=== PATIENT | female | born 1965 | race Caucasian/White ===

== ENCOUNTER 2016-06-14 20:44 | Emergency (ER) | payer OTHER ==
[~2016-06-14] VITALS: Ht 175.3 cm; Wt 65.3 kg
[~2016-06-14 20:44] MED LIST: AMOXICILLIN500 MG PO; CIPRO500 MG PO; COLCRYS0.6 MG PO; FEOSOL45 MG PO; FLOVENT HF110 MCG/AC IH; NORCO 10/325 MG1 TAB PO; PREDNISONE20 MG PO; PREMARIN0.625 MG PO; PROVERA10 M1 PO; REGLAN10 MG PO; RESTORIL15 MG PO; RESTORIL30 MG PO; SINGULAIR10 MG PO; TUDORZA PR400 MCG/Ac IH; TYLENOL #3 300/1 TAB PO; VENTOLIN H0.09 MG/Ac IH; ZITHROMAX250 MG PO
[2016-06-14 21:00] VITALS: BP 132/115
--- NOTE | 2016-06-14 21:12 | NUR ---
PT TAKEN TO OF3
--- NOTE | 2016-06-14 21:19 | NUR ---
Dr. Ring evaluating patient
[2016-06-14] MEDS ORDERED: ALBUTEROL 0.083% 2.5 MG/3 ML NEBU INH ONE ×2 (21:25→22:00)
[2016-06-14] MEDS ORDERED: methylPREDNISolone SS 125 MG in WATER STERILE 2 ML IM ONE (21:25)
[2016-06-14] MEDS ORDERED: SULFAMETH/TRIMETH DS 800/160MG 1 TAB PO ONE (21:25)
--- NOTE | 2016-06-14 21:36 | NUR ---
RT WITH PATIENT
--- NOTE | 2016-06-14 22:00 | NUR ---
PATIENT PRESENTS TO ED WITH SOB X2DAYS . PT STATES SHE HAS ALSO HAD A HEADACHE THE FEELS LIKE AN INTERMITTENT PULLING . DENIES N/V/D; SKIN IS PINK/WARM/DRY; AAOX4 WITH EVEN AND STEADY GAIT; LUNGS CLEAR BL; HR EVEN AND REGULAR; PT DENIES ANY FEVER, CP, SOB, OR COUGH AT THIS TIME; PATIENT STATES PAIN OF 10/10 AT THIS TIME; VSS; PATIENT POSITIONED FOR COMFORT; HOB ELEVATED; BEDRAILS UP X2; BED DOWN. ER MD MADE AWARE OF PT STATUS.
--- NOTE | 2016-06-14 22:10 | NUR ---
RT WITH PATIENT FOR SECOND TREATMENT
[2016-06-14] MEDS ORDERED: IBUPROFEN 800 MG TAB PO ONE (22:25)
--- NOTE | 2016-06-14 22:50 | NUR ---
Patient discharged with v/s stable. Written and verbal after care instructions given and explained. Patient alert, oriented and verbalized understanding of instructions. Ambulatory with steady gait. All questions addressed prior to discharge. ID band removed. Patient advised to follow up with PMD. Rx of Bactrim and Prednisone given. Patient educated on indication of medication including possible reaction and side effects. Opportunity to ask questions provided and answered.
[2016-06-14 22:51] VITALS: BP 128/75
[2016-09-07] MEDS ORDERED: FLOVENT HF110 MCG/AC INH (14:29)
[2016-09-07] MEDS ORDERED: VENTOLIN H0.09 MG/Ac IH (14:29)
[2016-09-07] MEDS ORDERED: CELEXA20 MG PO (14:29)
[2016-09-07] MEDS ORDERED: SINGULAIR10 MG PO (14:29)
[2016-09-07] MEDS ORDERED: LEVAQUIN750 MG PO (14:29)
[2016-09-07] MEDS ORDERED: FLORASTOR250 MG PO (14:29)
[2016-09-07] MEDS ORDERED: CLARITIN10 M1 PO (14:29)
[2016-09-07] MEDS ORDERED: MEDROL4 MG PO (14:29)
== END 2016-06-14 22:50 | disposition home or self-care (01) ==
LOC: MED 20:44
DX: J45.909 Unspecified asthma, uncomplicated (principal); R51 Headache; R50.9 Fever, unspecified
CPT/HCPCS: 94640; 96372; 99284; J2930; J7613

== ENCOUNTER 2016-09-02 13:49 | Emergency (ER) | payer OTHER ==
[~2016-09-02] VITALS: Ht 167.6 cm; Wt 64.0 kg
[~2016-09-02 13:49] MED LIST changes: +ALBU0.0912 IH; -AMOXICILLIN500 MG PO; -CIPRO500 MG PO; -COLCRYS0.6 MG PO; -FEOSOL45 MG PO; +FLO110 IH; -FLOVENT HF110 MCG/AC IH; -NORCO 10/325 MG1 TAB PO; -PREDNISONE20 MG PO; -PREMARIN0.625 MG PO; -PROVERA10 M1 PO; -REGLAN10 MG PO; -RESTORIL15 MG PO; -RESTORIL30 MG PO; -SINGULAIR10 MG PO; -TUDORZA PR400 MCG/Ac IH; -TYLENOL #3 300/1 TAB PO; -VENTOLIN H0.09 MG/Ac IH; -ZITHROMAX250 MG PO
[2016-09-02 13:50] VITALS: BP 120/59
[2016-09-02] MEDS ORDERED: ALBUTEROL 0.083% 2.5 MG/3 ML NEBU INH ONE ×2 (14:05→15:05)
[2016-09-02] MEDS ORDERED: IPRATROPIUM 0.02% 0.5 MG/2.5 ML NEBU INH ONE ×2 (14:05→15:05)
[2016-09-02] MEDS ORDERED: MAG SULF 2000 MG/WATER PREMIX 50 ML IV ONE (14:05)
[2016-09-02] MEDS ORDERED: methylPREDNISolone SS 125 MG/2 ML VIAL IVP ONE (14:05)
[2016-09-02] MEDS ORDERED: ASPIRIN 325 MG TAB PO ONE (14:05)
[2016-09-02] MEDS ORDERED: NACL 0.9% 1,000 ML IV ONE (14:05)
--- NOTE | 2016-09-02 14:09 | NUR ---
LAB AT BEDSIDE.
--- NOTE | 2016-09-02 14:14 | NUR ---
RT AT BEDSIDE.
--- NOTE | 2016-09-02 14:16 | NUR ---
51/M HERE FOR C/O SOB WITH AUDIBLE WHEEZING. RX ALBUTEROL INH/PREDNISONE 08/25/2016. HX ASTHMA, DEPRESSION, INGUINAL HERNIA. RX ALBUTEROL, PREDNISONE, CITALOPRAM. NEW ORDERS TO FOLLOW PER DR. RIVERA. Addendum: 09/02/16 at 1428 by MEDAE 51/F HERE FOR C/O SOB WITH AUDIBLE WHEEZING. RX ALBUTEROL INH/PREDNISONE 08/25/2016. HX ASTHMA, DEPRESSION, INGUINAL HERNIA. RX ALBUTEROL, PREDNISONE, CITALOPRAM. NEW ORDERS TO FOLLOW PER DR. RIVERA.
[2016-09-02 14:21] LABS: BASOPHILS # (AUTO) 0.2 K/uL (0.00-0.22); BASOPHILS % (AUTO) 1.9 % (0.0-2.0); EOSINOPHILS # (AUTO) 0.4 K/uL (0-0.4); EOSINOPHILS % (AUTO) 4.7 % (0.0-4.0); HEMOGLOBIN 15.8 g/dL (12.0-16.0); LYMPHOCYTES # (AUTO) 1.8 K/uL (2.5-16.5); LYMPHOCYTES % (AUTO) 19.7 % (20.5-51.1); MEAN CORPUSCULAR HEMOGLOBIN 30 pg (27-31); MEAN CORPUSCULAR HGB CONC 32 g/dL (33-37); MEAN CORPUSCULAR VOLUME 92 fL (80-94); MONOCYTES # (AUTO) 1.1 K/uL (0.8-1.0); MONOCYTES % (AUTO) 11.3 % (1.7-9.3); NEUTROPHILS # (AUTO) 5.9 K/uL (1.8-7.7); NEUTROPHILS % (AUTO) 62.4 % (42.2-75.2); PLATELET COUNT (AUTO) 267 K/uL (140-450); RED BLOOD CELL COUNT(AUTO) 5.31 MIL/uL (4.20-5.40); RED CELL DISTRIBUTION WIDTH 13.2 % (11.6-13.7); WHITE BLOOD COUNT (AUTO) 9.4 K/uL (4.8-10.8)
--- NOTE | 2016-09-02 14:28 | NUR ---
XRAY AT BEDSIDE.
[2016-09-02 14:41] LABS: INR 1.3 (0.8-1.2); PARTIAL THROMBOPLASTIN TIME 23.3 secs (22-35.6); PROTHROMBIN TIME 12.3 secs (10.8-13.4)
[2016-09-02 14:43] LABS: CALCIUM 9.7 mg/dL (8.5-10.1); CARBON DIOXIDE 32.2 mmol/L (21-32); CREATININE 0.8 mg/dL (0.6-1.3); POTASSIUM 3.2 mmol/L (3.5-5.1)
[2016-09-02 14:49] LABS: ALBUMIN 3.9 g/dL (3.4-5.0); TOTAL BILIRUBIN 0.6 mg/dL (0.0-1.0); TOTAL PROTEIN, SERUM 7.4 g/dL (6.4-8.2)
--- NOTE | 2016-09-02 15:00 | NUR ---
Patient being RE-evaluated by physician at bedside. PT WORK OF BREATHING HAS IMPROVED. RESIDUAL WHEEZING NOTED. RETRACTIONS FROM MODERATE TO MILD. ER MD AWARE.
[2016-09-02 16:22] VITALS: BP 138/83
--- NOTE | 2016-09-02 16:22 | NUR ---
Patient discharged with v/s stable. Written and verbal after care instructions given and explained. Patient alert, oriented and verbalized understanding of instructions. Ambulatory with steady gait. All questions addressed prior to discharge. ID band removed. Patient advised to follow up with PMD. Rx of PREDNISONE AND DEXTROMETHORPHAN/PROMETHAZINE given. Patient educated on indication of medication including possible reaction and side effects. Opportunity to ask questions provided and answered.
== END 2016-09-02 16:22 | disposition home or self-care (01) ==
LOC: MED 13:50
DX: J45.901 Unspecified asthma with (acute) exacerbation (principal); J20.9 Acute bronchitis, unspecified
CPT/HCPCS: 36415; 71010; 80053; 83880; 84484; 85025; 85610; 85730; 93005; 94640; 96365; 96375; 99291; J2930; J3475; J7613; J7644

== ENCOUNTER 2016-09-03 15:38 | Inpatient (IN) | payer OTHER ==
[~2016-09-03] VITALS: Ht 167.6 cm; Wt 62.2 kg
[2016-09-03 15:47] VITALS: BP 137/86
--- NOTE | 2016-09-03 15:54 | NUR ---
Patient ambulated to bed 4 with family. RN evaluating patient at bedside.
--- NOTE | 2016-09-03 15:57 | NUR ---
51/F TO ED WITH C/O SOB STARTING THIS MORNING. PT WAS SEEN IN ED YESTERDAY FOR ASTHMA. WHEEZING HEARD UPON INSP AND EXP. DENIES PAIN. AAOX4. VSS. ERMD TO SEE PT.
[2016-09-03] MEDS ORDERED: ALBUTEROL SULFATE/IPRATROPIU 3 ML SOL IH ONE (16:05)
[2016-09-03] MEDS ORDERED: MAG SULF 2000 MG/WATER PREMIX 50 ML IV ONE (16:05)
[2016-09-03] MEDS ORDERED: methylPREDNISolone SS 125 MG/2 ML VIAL IVP ONE (16:05)
--- NOTE | 2016-09-03 16:05 | NUR ---
Dr. Santos evaluating patient at bedside.
--- NOTE | 2016-09-03 16:14 | NUR ---
Breathing treatment administered at bedside by respiratory therapist.
--- NOTE | 2016-09-03 16:19 | NUR ---
RESPIRATORY TX. IN PROGRESS. MONITORED. NO DISTRESS
[2016-09-03 16:29] LABS: BASOPHILS # (AUTO) 0.1 K/uL (0.00-0.22); BASOPHILS % (AUTO) 0.7 % (0.0-2.0); EOSINOPHILS # (AUTO) 0.2 K/uL (0-0.4); EOSINOPHILS % (AUTO) 1.4 % (0.0-4.0); HEMATOCRIT 49.3 % (36-48); HEMOGLOBIN 15.9 g/dL (12.0-16.0); LYMPHOCYTES # (AUTO) 0.8 K/uL (2.5-16.5); LYMPHOCYTES % (AUTO) 6.2 % (20.5-51.1); MEAN CORPUSCULAR HEMOGLOBIN 30 pg (27-31); MEAN CORPUSCULAR HGB CONC 32 g/dL (33-37); MEAN CORPUSCULAR VOLUME 92 fL (80-94); MONOCYTES # (AUTO) 0.6 K/uL (0.8-1.0); MONOCYTES % (AUTO) 4.2 % (1.7-9.3); NEUTROPHILS # (AUTO) 11.6 K/uL (1.8-7.7); NEUTROPHILS % (AUTO) 87.5 % (42.2-75.2); PLATELET COUNT (AUTO) 264 K/uL (140-450); RED BLOOD CELL COUNT(AUTO) 5.38 MIL/uL (4.20-5.40); RED CELL DISTRIBUTION WIDTH 13.5 % (11.6-13.7); WHITE BLOOD COUNT (AUTO) 13.3 K/uL (4.8-10.8)
[2016-09-03 16:42] LABS: ANION GAP 104.7 (8-16); CALCIUM 9.6 mg/dL (8.5-10.1); CARBON DIOXIDE 12.3 mmol/L (21-32)
[2016-09-03 16:43] LABS: CREATININE 0.8 mg/dL (0.6-1.3)
[2016-09-03 16:47] LABS: ALBUMIN 3.8 g/dL (3.4-5.0); MAGNESIUM 1.8 mg/dL (1.8-2.4); PHOSPHORUS 2.8 mg/dL (2.5-4.9); TOTAL BILIRUBIN 0.3 mg/dL (0.0-1.0); TOTAL PROTEIN, SERUM 7.2 g/dL (6.4-8.2)
[2016-09-03 17:29] LABS: BLOOD GAS PCO2 32.7 mmHg (20-50); BLOOD GAS PH 7.422 (7.35-7.45)
[2016-09-03 17:30] LABS: BLOOD GAS BASE EXCESS -2.5 mmol/L (-2.0-2.0); BLOOD GAS HCO3 20.8 mmol/L; BLOOD GAS O2 SAT% 93.9 % (92.0-98.5)
--- NOTE | 2016-09-03 19:14 | NUR ---
Patient will be admitted to care of DR BOWIE. Admited to TELE. Will go to room 120A. Belongings list completed. Report to VAISHALI.
--- NOTE | 2016-09-03 19:40 | NUR ---
RECEIVED REPORT FROM DAY RN FOR CONTINUITY OF CARE. PATIENT ARRIVED FROM ER WITH DIAGNOSIS ACUTE ASTHMA EXACERBATION. PATIENT IS A&OX4, DISCUSSED PLAN OF CARE WITH PT AND DAUGHTER AT BEDSIDE, VERBALIZED UNDERSTANDING. SHIFT ASSESSMENT DONE, VS TAKEN, STABLE. NO S/S OF RESPIRATORY DISTRESS NOTED ON 2L NC. PATIENT DENIES PAIN. SKIN INTACT. IV TO RT FA PATENT AND FLUSHED. MRSA SWAB COLLECTED, WRISTBANDS APPLIED. SAFETY PRECAUTIONS ENFORCED AND CALL LIGHT PLACED WITHIN REACH. WILL CONTINUE TO MONITOR.
[2016-09-03 20:00] VITALS: BP 126/82
[2016-09-03] MEDS ORDERED: ACETAMINOPHEN 325 MG TAB PO PRN (20:15)
[2016-09-03] MEDS ORDERED: ONDANSETRON 4 MG/2 ML VIAL IVP PRN (20:15)
[2016-09-03] MEDS ORDERED: ZOLPIDEM 5 MG TAB PO PRN (20:15)
[2016-09-03] MEDS ORDERED: LORazepam 1 MG TAB PO PRN (20:15)
[2016-09-03] MEDS ORDERED: ALBUTEROL SULFATE/IPRATROPIU 3 ML SOL INH PRN (20:20)
[2016-09-03] MEDS: ALBUTEROL SULFATE/IPRATROPIU 3 ML SOL INH SCH (20:20)
--- NOTE | 2016-09-03 20:45 | NUR ---
DUO PRN HHN TREATMENT WAS GIVEN AT 2044, AT 2019 NO MEDICATION WAS AVAILABLE IN THE [facility]
[2016-09-03] MEDS: NACL 0.9% 1,000 ML IV SCH (20:50)
[2016-09-03 20:56] LABS: CHOL/HDL RATIO 2.1 (1-4.5); LDL (CALC) 115.8 mg/dL (60-100)
--- NOTE | 2016-09-03 20:58 | NUR ---
SPOKE TO DR. BOWIE REGARDING ORDER FOR ANTIDEPRESSANT AND NPO STATUS. PER PATIENT CAN EAT TONIGHT.
[2016-09-03] MEDS: CITALOPRAM 20 MG TAB PO SCH (21:15)
[2016-09-03] MEDS: methylPREDNISolone SS 125 MG/2 ML VIAL IVP SCH (21:20)
--- NOTE | 2016-09-03 21:20 | NUR ---
DUE MEDICATIONS ADMINISTERED PER MD ORDER. PATIENT HAS NO S/S OF DISTRESS NOTED. WILL CONTINUE TO MONITOR.
--- NOTE | 2016-09-03 23:52 | NUR ---
VS TAKEN, STABLE. PT IS SLEEPING, NO S/S OF DISTRESS NOTED. CALL LIGHT WITHIN REACH.
[2016-09-04] VITALS: BP 115/66
--- NOTE | 2016-09-04 01:56 | NUR ---
PATIENT IS SLEEPING, NO S/S OF DISTRESS OR DISCOMFORT NOTED. WILL CONTINUE TO MONITOR.
[2016-09-04 04:00] VITALS: BP 119/72
[2016-09-04] MEDS: methylPREDNISolone SS 125 MG/2 ML VIAL IVP SCH ×2 (04:22→13:02)
--- NOTE | 2016-09-04 04:30 | NUR ---
VS TAKEN, STABLE. ALL NEEDS MET AT THIS TIME. CALL LIGHT WITHIN REACH.
--- NOTE | 2016-09-04 05:57 | NUR ---
PT AMBULATED TO RESTROOM, NO S/S OF DISTRESS. CALL LIGHT IN REACH.
[2016-09-04 06:49] LABS: BASOPHILS % (AUTO) 0.3 % (0.0-2.0); EOSINOPHILS # (AUTO) 0.1 K/uL (0-0.4); EOSINOPHILS % (AUTO) 0.7 % (0.0-4.0); HEMATOCRIT 47.8 % (36-48); HEMOGLOBIN 15.5 g/dL (12.0-16.0); LYMPHOCYTES # (AUTO) 0.5 K/uL (2.5-16.5); LYMPHOCYTES % (AUTO) 6.3 % (20.5-51.1); MEAN CORPUSCULAR HEMOGLOBIN 30 pg (27-31); MEAN CORPUSCULAR HGB CONC 32 g/dL (33-37); MEAN CORPUSCULAR VOLUME 93 fL (80-94); MONOCYTES # (AUTO) 0.2 K/uL (0.8-1.0); MONOCYTES % (AUTO) 3.1 % (1.7-9.3); NEUTROPHILS # (AUTO) 7.2 K/uL (1.8-7.7); NEUTROPHILS % (AUTO) 89.6 % (42.2-75.2); PLATELET COUNT (AUTO) 254 K/uL (140-450); RED BLOOD CELL COUNT(AUTO) 5.11 MIL/uL (4.20-5.40); RED CELL DISTRIBUTION WIDTH 13.4 % (11.6-13.7)
[2016-09-04 07:10] LABS: PHOSPHORUS 3.9 mg/dL (2.5-4.9)
[2016-09-04 07:18] LABS: ANION GAP 11.9 (8-16); CALCIUM 9.6 mg/dL (8.5-10.1); CARBON DIOXIDE 28.2 mmol/L (21-32); CREATININE 0.7 mg/dL (0.6-1.3); POTASSIUM 5.1 mmol/L (3.5-5.1)
[2016-09-04] MEDS: ALBUTEROL SULFATE/IPRATROPIU 3 ML SOL INH SCH ×4 (07:21→19:50)
--- NOTE | 2016-09-04 07:23 | NUR ---
ENDORSED PATIENT TO DAY RN FOR CONTINUITY OF CARE, PATIENT IS IN STABLE CONDITION.
--- NOTE | 2016-09-04 07:24 | NUR ---
RECEIVED REPORT FROM FIELD FOREMAN NURSE AT BEDSIDE. PT WAS AMBULATING FROM BATHROOM BACK TO BED. PT IS ALERT, AWAKE AND ORIENTED. INTRODUCED OURSELVES AND DISCUSSED PLAN OF CARE FOR TODAY. WILL DISCUSS WITH DOCTOR REGARDING PATIENT'S DIET SHE IS NPO RIGHT NOW. PT IS ON 2L NC.SHE HAS IV ON R F/A 20G RUNNING NS 80ML/HR. NO COMPLAINTS AT THIS TIME. CALL LIGHT WITHIN REACH. WILL CONTINUE TO MONITOR.
[2016-09-04 08:00] VITALS: BP 116/78
--- NOTE | 2016-09-04 08:05 | NUR ---
ASSESSED PT. VS WNL. BL WHEEZING ON EXPIRATION. NO OTHER SIGNS OF DISTRESS. NO COMPLAINTS AT THIS TIME. WILL CONTINUE TO MONITOR.
[2016-09-04] MEDS: NACL 0.9% 1,000 ML IV SCH ×2 (08:43→20:42)
[2016-09-04] MEDS: DOCUSATE SODIUM 100 MG GELCAP PO SCH (09:00)
--- NOTE | 2016-09-04 09:20 | NUR ---
TALKED TO DOCTOR REGARDING PT'S NPO DIET. DOCTOR WILL PUT IN A NEW DIET ORDER. PT IS RESTING IN BED. NO DISTRESS OR COMPLAINTS AT THIS TIME. PT REFUSED COLACE SHE HAD A BM YESTERDAY. WILL CONTINUE TO MONITOR.
[2016-09-04] MEDS ORDERED: LORATADINE 10 MG TAB PO SCH ×2 (09:40→13:00)
[2016-09-04] MEDS ORDERED: FAMOTIDINE 20 MG TAB PO SCH ×2 (09:40→13:00)
--- NOTE | 2016-09-04 10:00 | NUR ---
PT IS EATING IN BED. TOLERATING WELL. PROVIDED A PITCHER OF WATER. NO COMPLAINTS OR DISTRESS AT THIS TIME. WILL CONTINUE TO MONITOR.
[2016-09-04] MEDS ORDERED: BUDESONIDE 0.5 MG/2 ML NEBU INH SCH (10:30)
[2016-09-04] MEDS ORDERED: BENZOCAINE/MENTHOL 1 LOZ MM SCH (10:30)
[2016-09-04 10:32] LABS: INR 1.3 (0.8-1.2); PARTIAL THROMBOPLASTIN TIME 23.4 secs (22-35.6)
[2016-09-04 10:42] LABS: FREE T4 (FREE THYROXINE) 1.08 ng/dL (0.76-1.46); THYROID STIMULATING HORMONE 0.08 uIU/mL (0.34-3.76)
[2016-09-04] MEDS: LEVOFLOXACIN 500 MG/D5W PREMIX 100 ML IV SCH (11:41)
[2016-09-04] MEDS ORDERED: BENZOCAINE/MENTHOL 1 LOZ MM PRN ×2 (12:00→13:05)
--- NOTE | 2016-09-04 12:20 | NUR ---
GAVE PT A SPECIMEN CUP AND ASKED HER TO COLLECT URINE IN IT. SHE VERBALIZED UNDERSTANDING AND WILL CALL US WHEN READY. PT EATING LUNCH IN BED WITH FAMILY AT BEDSIDE. NO DISTRESS OR COMPLAINTS AT THIS TIME. WILL CONTINUE TO MONITOR.
[2016-09-04 12:29] VITALS: BP 119/69
--- NOTE | 2016-09-04 13:00 | NUR ---
PT IS RESTING IN BED. NO DISTRESS OR COMPLAINTS AT THIS TIME. WILL CONTINUE TO MONITOR.
[2016-09-04 13:27] LABS: APPEARANCE,URINE CLEAR (CLEAR); BILIRUBIN,URINE NEGATIVE (NEGATIVE); BLOOD, URINE NEGATIVE (NEGATIVE); COLOR,URINE YELLOW (YELLOW); LEUKOCYTE ESTERASE ,URINE NEGATIVE (NEGATIVE); NITRITE, URINE NEGATIVE (NEGATIVE); PROTEIN,URINE NEGATIVE (NEGATIVE); UGLUCOSE 1+ (NEGATIVE); UROBILINOGEN,URINE 0.2 EU/dL (0.2 - 1)
[2016-09-04 13:37] LABS: BACTERIA,URINE OCCASSIONAL /HPF (None Seen); RBC,URINE NONE SEEN /HPF (0-5); SQUAMOUS EPITHELIAL CELL,UR 0-3 (FEW) /LPF (0-3 (FEW)); WBC,URINE 0-5 (RARE) /HPF (0-5)
[2016-09-04 16:00] VITALS: BP 119/69
[2016-09-04] MEDS: MONTELUKAST SODIUM 10 MG TAB PO SCH (16:50)
--- NOTE | 2016-09-04 17:00 | NUR ---
ADMINISTERED AFTERNOON MED. PT TOLERATED WELL. NO COMPLAINTS AT THIS TIME. WILL CONTINUE TO MONITOR.
--- NOTE | 2016-09-04 18:30 | NUR ---
PT IS RESTING COMFORTABLY WITH FAMILY AT BEDSIDE. CALL GARRISON WITHIN REACH. WILL CONTINUE TO MONITOR.
--- NOTE | 2016-09-04 19:09 | NUR ---
ENDORSED PT TO ASSISTANT MANAGER BILINGUAL NURSE AT BEDSIDE FOR CONTINUITY OF CARE. PT IN STABLE CONDITION.
--- NOTE | 2016-09-04 19:10 | NUR ---
RECEIVED REPORT FROM DAY RN FOR CONTINUITY OF CARE. PATIENT IS A&OX4, DISCUSSED PLAN OF CARE WITH PATIENT AND FAMILY MEMBERS AT BEDSIDE, VERBALIZED UNDERSTANDING. SHIFT ASSESSMENT DONE, VS TAKEN, STABLE. NO S/S OF RESPIRATORY DISTRESS NOTED. PATIENT DENIES PAIN AT THIS TIME. IV TO RT FA 20 GAUGE PATENT AND INFUSING FLUIDS WELL. PT EATING A SNACK, TOLERATED WELL. SAFETY/FALL PRECAUTIONS ENFORCED. CALL LIGHT WITHIN REACH.
[2016-09-04] MEDS: BUDESONIDE 0.5 MG/2 ML NEBU INH SCH (19:50)
[2016-09-04 20:00] VITALS: BP 125/73
[2016-09-04] MEDS: methylPREDNISolone SS 40 MG/ML VIAL IVP SCH (20:41)
[2016-09-04] MEDS: CITALOPRAM 20 MG TAB PO SCH (20:42)
--- NOTE | 2016-09-04 20:42 | NUR ---
DUE MEDICATIONS ADMINISTERED, TOLERATED WELL. CALL LIGHT WITHIN REACH.
--- NOTE | 2016-09-04 22:25 | NUR ---
PATIENT IS SLEEPING. NO S/S OF DISTRESS OR DISCOMFORT NOTED. CALL LIGHT IN REACH.
[2016-09-05] VITALS: BP 121/60
--- NOTE | 2016-09-05 00:34 | NUR ---
VS TAKEN, STABLE. PT IS SLEEPING, NO S/S OF DISTRESS NOTED. WILL CONTINUE TO MONITOR.
--- NOTE | 2016-09-05 02:05 | NUR ---
PT IS SLEEPING. NO S/S OF DISTRESS OR DISCOMFORT NOTED ON 2L NC. CALL LIGHT WITHIN REACH.
[2016-09-05 04:00] VITALS: BP 124/70
[2016-09-05] MEDS: methylPREDNISolone SS 40 MG/ML VIAL IVP SCH ×3 (04:17→20:22)
[2016-09-05] MEDS: HYDROcodone/APAP 5/325 MG 1 TAB TAB PO PRN ×2 (04:17→17:16)
--- NOTE | 2016-09-05 04:17 | NUR ---
VS TAKEN, STABLE. PT C/O ABDOMINAL PAIN, MEDICATED PER MD ORDER. CALL LIGHT WITHIN REACH.
--- NOTE | 2016-09-05 05:40 | NUR ---
PATIENT IS SLEEPING. NO S/S OF DISTRESS NOTED. CALL LIGHT IN REACH.
[2016-09-05] MEDS: ALBUTEROL SULFATE/IPRATROPIU 3 ML SOL INH SCH ×4 (06:47→19:25)
[2016-09-05] MEDS: BUDESONIDE 0.5 MG/2 ML NEBU INH SCH ×2 (06:56→19:26)
--- NOTE | 2016-09-05 07:06 | NUR ---
DECREASED FIO2 TO 3LNC
--- NOTE | 2016-09-05 07:18 | NUR ---
ENDORSED PATIENT TO DAY RN FOR CONTINUITY OF CARE, PATIENT IS IN STABLE CONDITION.
--- NOTE | 2016-09-05 07:30 | NUR ---
RECEIVED ON BED AAOX4. NO SOB NOTED. NO C/O PAIN AT THIS TIME. IV TO RT HAND PATENT AND INTACT. CHEST DIMINISHED AIR ENTRY TO THE BASES, WHEEZING BILATERALLY. ABDOMEN SOFT, BOWEL SOUNDS PRESENT. NO EDEMA NOTED. INSTRUCTED PT TO CALL FOR ASSISTANCE, CALL LIGHT WITHIN REACH. PT VERBALIZED UNDERSTANDING.
[2016-09-05 08:00] VITALS: BP 130/68
--- NOTE | 2016-09-05 08:00 | NUR ---
RECEIVED ON BED AAOX4. NO SOB NOTED. NO C/O PAIN AT THIS TIME. IV TO RT HAND PATENT AND INTACT. CHEST DIMINISHED AIR ENTRY TO THE BASES, WHEEZING BILATERALLY. ABDOMEN SOFT, BOWEL SOUNDS PRESENT. NO EDEMA NOTED. INSTRUCTED PT TO CALL FOR ASSISTANCE, CALL LIGHT WITHIN REACH. PT VERBALIZED UNDERSTANDING. Addendum: 09/05/16 at 1406 by Marion Tello RN pls disregard above notes, duplicate.
--- NOTE | 2016-09-05 08:27 | NUR ---
PATIENT HAS BEEN SCREENED AND CATEGORIZED MODERATE NUTRITION RISK. PATIENT WILL BE SEEN WITHIN 3-5 DAYS OF ADMISSION. 09/06/16-09/08/[address]
[2016-09-05 09:09] LABS: T4 (THYROXINE) 8.3 ug/dL (4.5-12.0)
[2016-09-05] MEDS: DOCUSATE SODIUM 100 MG GELCAP PO SCH (09:47)
[2016-09-05] MEDS: LORATADINE 10 MG TAB PO SCH (09:48)
[2016-09-05] MEDS: FAMOTIDINE 20 MG TAB PO SCH (09:49)
[2016-09-05] MEDS: LEVOFLOXACIN 500 MG/D5W PREMIX 100 ML IV SCH (09:50)
[2016-09-05 10:06] LABS: BLOOD GAS BASE EXCESS -0.1 mmol/L (-2.0-2.0); BLOOD GAS HCO3 23.8 mmol/L; BLOOD GAS O2 SAT% 90.5 % (92.0-98.5); BLOOD GAS PCO2 36.9 mmHg (20-50); BLOOD GAS PH 7.428 (7.35-7.45); BLOOD GAS PO2 56.5 mmHg
--- NOTE | 2016-09-05 11:29 | NUR ---
CM NOTE INITIAL REVIEW SENT TO [facility] FAX# [phone] PH# [place] [phone] OCTOBER [phone] [facility] FAX# [phone] PH# [phone] [id number]
[2016-09-05 12:00] VITALS: BP 113/74
--- NOTE | 2016-09-05 12:00 | NUR ---
PATIENT IS RESTING COMFORTABLY IN BED ON SUPINE POSITION. NO SOB NOTED AND VITAL SIGNS WITHIN NORMAL LIMIT.
--- NOTE | 2016-09-05 14:30 | NUR ---
PT SEEN BY DR. KATZ WITH NEW ORDERS. CXR DONE.
[2016-09-05 16:00] VITALS: BP 127/63
[2016-09-05] MEDS: MONTELUKAST SODIUM 10 MG TAB PO SCH (17:04)
--- NOTE | 2016-09-05 19:21 | NUR ---
ENDORSED TO DOCTOR OF MEDICINE NURSE FOR CONTINUITY OF CARE. PATIENT IS ON SUPINE POSITION TALKING WITH FAMILY MEMBER. NOT IN ACUTE DISTRESS AND DENIES PAIN AT THIS TIME. WILL CONTINUE TO MONITOR FOR SOB.
--- NOTE | 2016-09-05 19:22 | NUR ---
RECEIVED REPORT FROM DAY RN FOR CONTINUITY OF CARE. PATIENT IS A&OX4, DISCUSSED PLAN OF CARE WITH PATIENT AND FAMILY MEMBERS AT BEDSIDE. PATIENT VERBALIZED UNDERSTANDING, ALL QUESTIONS ANSWERED. SHIFT ASSESSMENT DONE, VS TAKEN, HR ELEVATED 107-115, PT ASYMPTOMATIC. NO S/S OF RESPIRATORY DISTRESS NOTED ON 3L NC. PATIENT DENIES PAIN AT THIS TIME. IV TO RT FA 20 GAUGE PATENT FLUSHED. SAFETY PRECAUTIONS IMPLEMENTED. CALL LIGHT PLACED WITHIN REACH. WILL CONTINUE TO MONITOR.
[2016-09-05 20:00] VITALS: BP 117/85
[2016-09-05] MEDS: CITALOPRAM 20 MG TAB PO SCH (20:22)
--- NOTE | 2016-09-05 20:22 | NUR ---
DUE MEDICATIONS ADMINISTERED, TOLERATED WELL. PT STATES SHE WOULD LIKE TO SLEEP NOW. CALL LIGHT WITHIN REACH.
--- NOTE | 2016-09-05 22:35 | NUR ---
PATIENT IS SLEEPING, NO S/S OF DISTRESS NOTED WILL CONTINUE TO MONITOR.
[2016-09-06] VITALS: BP 125/88
--- NOTE | 2016-09-06 00:50 | NUR ---
PATIENT AMBULATING TO RESTROOM C/O ABDOMINAL PAIN. VS TAKEN, STABLE. WILL FOLLOW UP WITH MD FOR PAIN MEDICATION.
--- NOTE | 2016-09-06 00:56 | NUR ---
SPOKE TO DR. BOWIE REGARDING PAIN MEDICATION FOR PATIENT, WILL FOLLOW OUT ORDERS GIVEN.
[2016-09-06] MEDS: MORPHINE SULFATE 2 MG/ML SYR IVP PRN ×2 (01:08→21:48)
--- NOTE | 2016-09-06 01:08 | NUR ---
ADMINISTERED PAIN MEDICATION PER MD ORDER. PT RESTING IN BED. WILL CONTINUE TO MONITOR.
[2016-09-06 04:00] VITALS: BP 122/76
--- NOTE | 2016-09-06 04:22 | NUR ---
VS TAKEN, STABLE. TOOK PT OF O2 FOR WEANING, O2 SAT AT 91-93%, PLACED BACK ON O2 PER PT COMFORT. WILL CONTINUE TO MONITOR.
[2016-09-06] MEDS: methylPREDNISolone SS 40 MG/ML VIAL IVP SCH ×3 (04:33→21:48)
--- NOTE | 2016-09-06 06:02 | NUR ---
PATIENT IS RESTING IN BED. NO S/S OF DISTRESS OR DISCOMFORT NOTED.
[2016-09-06] MEDS: ALBUTEROL SULFATE/IPRATROPIU 3 ML SOL INH SCH ×3 (06:59→15:32)
[2016-09-06] MEDS: BUDESONIDE 0.5 MG/2 ML NEBU INH SCH (07:09)
--- NOTE | 2016-09-06 07:22 | NUR ---
ENDORSED PATIENT TO DAY RN FOR CONTINUITY OF CARE, PATIENT IS IN STABLE CONDITION.
--- NOTE | 2016-09-06 07:23 | NUR ---
RECEIVED REPORT FROM ELECTRICAL ENGINEER MEP NURSE AT BEDSIDE FOR CONTINUITY OF CARE. PT IS ALERT, AWAKE, AND ORIENTED. PT HAS NC @2L. IV ON R F/A 20G SALINE-LOCKED. INTRODUCED MYSELF AND UPDATED THE BOARD. EXPLAINED PLAN OF CARE TO PT AND PT VERBALIZED UNDERSTANDING. CALL LIGHT WITHIN REACH. WILL CONTINUE TO MONITOR.
[2016-09-06 08:00] VITALS: BP 129/77
--- NOTE | 2016-09-06 08:00 | NUR ---
VS WNL. BL EXPIRATORY WHEEZING. NC 2L. NO TENDERNESS OR BLOATING IN ABDOMEN. PT DENIES PAIN. EDUCATED PT REGARDING WEANING PROCESS OF OXYGEN, PT VERBALIZED UNDERSTANDING. WILL CONTINUE TO MONITOR.
--- NOTE | 2016-09-06 08:19 | NUR ---
CM NOTE CONCURRENT REVIEW SENT TO [facility] FAX# [phone] PH# [place] [phone] OCTOBER [phone] AND TO [facility] FAX# [phone] PH# [phone] [id number]
[2016-09-06] MEDS: DOCUSATE SODIUM 100 MG GELCAP PO SCH (09:10)
[2016-09-06] MEDS: FAMOTIDINE 20 MG TAB PO SCH (09:10)
[2016-09-06] MEDS: LEVOFLOXACIN 500 MG/D5W PREMIX 100 ML IV SCH (09:10)
[2016-09-06] MEDS: LORATADINE 10 MG TAB PO SCH (09:10)
--- NOTE | 2016-09-06 09:45 | NUR ---
TRANSFERRED PT FROM ROOM 120A TO 111A. GATHERED ALL PERSONAL BELONGINGS AND REORIENTED PT TO THE NEW ROOM. PT TOLERATED WELL. WILL CONTINUE TO MONITOR.
--- NOTE | 2016-09-06 10:30 | NUR ---
PT STATED SHE TOOK OFF NC FOR 15 MIN AND AMBULATED TO BATHROOM. CAME BACK TO BED WITH SOB, PUT NC BACK ON. WILL CONTINUE TO MONITOR.
[2016-09-06 12:00] VITALS: BP 129/87
--- NOTE | 2016-09-06 13:00 | NUR ---
PT RESTING COMFORTABLY WITH SPOUSE AT BEDSIDE. NO SIGNS OF DISTRESS. NO COMPLAINTS. DENIES PAIN. WILL CONTINUE TO MONITOR.
--- NOTE | 2016-09-06 15:00 | NUR ---
TELE ANGLESMITH STATED PT HR AT 140. CHECKED PT. PT WAS AMBULATING TO BATHROOM AND BACK. PT ASYMPTOMATIC. WILL CONTINUE TO MONITOR.
[2016-09-06 16:00] VITALS: BP 131/80
--- NOTE | 2016-09-06 17:00 | NUR ---
CT CAME. IV IN F/A NOT ACCEPTABLE. RESTARTED IV ON L AC 20 G. PT TOLERATED WELL. CALLED CT TO SPARE FIXER PT FOR CT ANGIOGRAM.
[2016-09-06] MEDS: MONTELUKAST SODIUM 10 MG TAB PO SCH (17:19)
--- NOTE | 2016-09-06 18:59 | NUR ---
PT RESTING COMFORTABLY IN BED. NO SIGNS OF DISTRESS. WILL CONTINUE TO MONITOR.
--- NOTE | 2016-09-06 19:20 | NUR ---
SEEN PT AWAKE, ALERT AND ORIENTED. FAMILY MEMBERS AT BEDSIDE.
--- NOTE | 2016-09-06 19:30 | NUR ---
ENDORSED PT TO FINISHED YARN EXAMINER NURSE FOR CONTINUITY OF CARE. PT IN STABLE CONDITION.
[2016-09-06 20:20] VITALS: BP 135/84
--- NOTE | 2016-09-06 20:30 | NUR ---
SEEN PT AWAKE, ALERT AND ORIENTED. INITIAL ASSESSMENT DONE. VITAL SIGNS CHECKED. PT STATES SHE HAS 8/10 HERNIA PAIN. WILL MEDICATE FOR PAIN ORDERED. PT DENIES ANY SOB. PLAN OF CARE DISCUSSED. PT VERBALIZED UNDERSTANDING. SAFETY ENSURED. CALL LIGHT W/IN REACH.
[2016-09-06] MEDS: CITALOPRAM 20 MG TAB PO SCH (21:47)
--- NOTE | 2016-09-06 21:48 | NUR ---
SEEN PT MOVED TO RM 112A. MEDICATIONS GIVEN ORDERED. TEACHINGS PROVIDED. PT VERBALIZED UNDERSTANDING. PT DENIES ANY OTHER NEEDS. CALL LIGHT W/IN REACH.
[2016-09-07] VITALS: BP 101/71
[2016-09-07] MEDS: ALBUTEROL SULFATE/IPRATROPIU 3 ML SOL INH SCH ×3 (00:01→11:42)
[2016-09-07] MEDS: BUDESONIDE 0.5 MG/2 ML NEBU INH SCH ×2 (00:01→07:19)
--- NOTE | 2016-09-07 00:25 | NUR ---
SEEN PT ASLEEP. AWAKEN PT. VITAL SIGNS CHECKED. PT VERBALIZED HER PAIN IS BETTER. PT DENIES ANY OTHER NEEDS. CALL LIGHT W/IN REACH.
--- NOTE | 2016-09-07 01:30 | NUR ---
SEEN PT IN THE BATHROOM. PT'S HR ON 120'S-130'S.
[2016-09-07 04:00] VITALS: BP 117/74
--- NOTE | 2016-09-07 04:40 | NUR ---
SEEN PT ASLEEP. PT AWAKEN. VITAL SIGNS CHECKED. MEDICATION GIVEN ORDERED W/ TEACHINGS. PT VERBALIZED UNDERSTANDING. PT DENIES ANY DISCOMFORT.
[2016-09-07] MEDS: methylPREDNISolone SS 40 MG/ML VIAL IVP SCH ×2 (04:46→12:18)
[2016-09-07 06:17] LABS: BASOPHILS # (AUTO) 0.1 K/uL (0.00-0.22); BASOPHILS % (AUTO) 0.5 % (0.0-2.0); EOSINOPHILS # (AUTO) 0.2 K/uL (0-0.4); EOSINOPHILS % (AUTO) 1.5 % (0.0-4.0); HEMATOCRIT 47.9 % (36-48); HEMOGLOBIN 15.6 g/dL (12.0-16.0); LYMPHOCYTES # (AUTO) 0.8 K/uL (2.5-16.5); LYMPHOCYTES % (AUTO) 6.5 % (20.5-51.1); MEAN CORPUSCULAR HEMOGLOBIN 30 pg (27-31); MEAN CORPUSCULAR HGB CONC 33 g/dL (33-37); MEAN CORPUSCULAR VOLUME 93 fL (80-94); MONOCYTES # (AUTO) 0.8 K/uL (0.8-1.0); MONOCYTES % (AUTO) 6.2 % (1.7-9.3); NEUTROPHILS % (AUTO) 85.3 % (42.2-75.2); PLATELET COUNT (AUTO) 272 K/uL (140-450); RED BLOOD CELL COUNT(AUTO) 5.13 MIL/uL (4.20-5.40); RED CELL DISTRIBUTION WIDTH 13.4 % (11.6-13.7); WHITE BLOOD COUNT (AUTO) 12.9 K/uL (4.8-10.8)
[2016-09-07 06:47] LABS: ANION GAP 9.3 (8-16); CALCIUM 9.3 mg/dL (8.5-10.1); CARBON DIOXIDE 30.9 mmol/L (21-32); CREATININE 0.6 mg/dL (0.6-1.3); POTASSIUM 4.2 mmol/L (3.5-5.1)
[2016-09-07 07:04] LABS: PHOSPHORUS 4.3 mg/dL (2.5-4.9)
--- NOTE | 2016-09-07 07:21 | NUR ---
BEDSIDE REPORT GIVEN TO DAYSHIFT NURSE.
--- NOTE | 2016-09-07 07:22 | NUR ---
RECEIVED REPORT FROM DIETARY SERVICES MANAGER NURSE AT BEDSIDE. PT IS ALERT AWAKE AND ORIENTED. INTRODUCED OURSELVES AND UPDATED THE BOARD. PT IS ON NC 4L, O2 95%. IV IN L AC 20G AND R F/A 22 G. NO SIGNS OF DISTRESS, NO COMPLAINTS AT THIS TIME. INSTRUCTED PT ABOUT TODAY'S PLAN. PT STILL COMPLAINS OF SOB AND HEART PALPITATIONS WHEN GETTING UP. STILL ROUNDING, WILL WAIT FOR ORDERS, POSSIBLE DISCHARGE TODAY. WILL CONTINUE TO MONITOR PT.
[2016-09-07 08:00] VITALS: BP 121/83
[2016-09-07] MEDS: LEVOFLOXACIN 500 MG/D5W PREMIX 100 ML IV SCH (08:54)
[2016-09-07] MEDS: FAMOTIDINE 20 MG TAB PO SCH (08:54)
[2016-09-07] MEDS: LORATADINE 10 MG TAB PO SCH (08:55)
[2016-09-07] MEDS: DOCUSATE SODIUM 100 MG GELCAP PO SCH (08:55)
--- NOTE | 2016-09-07 10:20 | NUR ---
PT CALLED STATING THAT HER LEFT AC IV WAS BLEEDING. TOOK OFF THE IV, CATHETER INTACT. PT TOLERATED WELL. WILL CONTINUE TO MONITOR.
[2016-09-07 12:00] VITALS: BP 121/81
[2016-09-07] MEDS: HYDROcodone/APAP 5/325 MG 1 TAB TAB PO PRN (12:18)
--- NOTE | 2016-09-07 12:25 | NUR ---
DR. RUBI SPOKE TO PT REGARDING DISCHARGE FOR TODAY. PT WANTS TO GO HOME BETWEEN 1430 AND 1500. WILL START ON PAPERWORK ONCE WE GET ORDERS.
[2016-09-07] MEDS ORDERED: FLO110 INH (14:29)
[2016-09-07] MEDS ORDERED: SACC250C4 PO (14:29)
[2016-09-07] MEDS ORDERED: LORA10TA19 PO (14:29)
[2016-09-07] MEDS ORDERED: LEVO750T2 PO (14:29)
[2016-09-07] MEDS ORDERED: ALBU0.0912 IH (14:29)
[2016-09-07] MEDS ORDERED: CITA20TA15 PO (14:29)
[2016-09-07] MEDS ORDERED: METH4TAB1 PO (14:29)
[2016-09-07] MEDS ORDERED: MONT10TA35 PO (14:29)
--- NOTE | 2016-09-07 15:00 | NUR ---
WENT OVER DISCHARGE INSTRUCTIONS WITH PT. ANSWERED ALL QUESTIONS. PT SIGNED ALL APPROPRIATE DOCUMENTATION. REMOVED IV, CANNULA INTACT, NO BLEEDING NOTED. REMOVED GUIDE TRAVEL. REMOVED WRIST ID BANDS. REMOVED PULSE OX. PT TOLERATED WELL. PT IN STABLE CONDITION. NO COMPLAINTS. WILL GET DRESSED AND GATHER PERSONAL BELONGINGS, WILL LET NURSE KNOW WHEN SHE IS READY TO GO. WILL HAVE WHEELCHAIR READY.
--- NOTE | 2016-09-07 15:20 | NUR ---
WHEELED PT OUT TO FRONT LOBBY WHERE WAS WAITING IN HIS CAR. PT IN STABLE CONDITION.
== END 2016-09-07 15:20 | disposition home or self-care (01) | DRG 141 ==
LOC: MED 15:38 → MTU 18:44
PROVIDERS: ADMIT Student in an Organized Health Care Education/Training Program; ATTEND Student in an Organized Health Care Education/Training Program
DX: J45.901 Unspecified asthma with (acute) exacerbation (principal); J96.21 Acute and chronic respiratory failure with hypoxia; N17.0 Acute kidney failure with tubular necrosis; I42.9 Cardiomyopathy, unspecified; E11.9 Type 2 diabetes mellitus without complications; E78.5 Hyperlipidemia, unspecified; I11.9 Hypertensive heart disease without heart failure; D72.829 Elevated white blood cell count, unspecified; K40.90 Unilateral inguinal hernia, without obstruction or gangrene, not specified as recurrent; K43.9 Ventral hernia without obstruction or gangrene; R91.1 Solitary pulmonary nodule; T38.0X5A Adverse effect of glucocorticoids and synthetic analogues, initial encounter; Y92.89 Other specified places as the place of occurrence of the external cause
CPT/HCPCS: 36415; 36600; 71010; 71275; 80048; 80053; 81001; 82803; 83036; 83735; 83880; 84100; 84436; 84439; 84443; 84479; 85025; 85610; 85730; 87081; 93005; 94640; 96365; 96366; 96375; 99285; J1956; J2270; J2920; J2930; J3475; J7030; J7620; J7626; Q0092; Q9967

== ENCOUNTER 2017-02-15 21:23 | Inpatient (IN) | payer OTHER ==
[~2017-02-15] VITALS: Ht 157.5 cm; Wt 68.9 kg
[~2017-02-15 21:23] MED LIST changes: +CITA20TA15 PO; +FLO110 INH; +FLOR250 PO; +LEVO750T2 PO; +LORA10TA19 PO; +METH4TAB1 PO; +MONT10TA35 PO
[2017-02-15 21:31] VITALS: BP 123/79
--- NOTE | 2017-02-15 21:35 | NUR ---
PT TAKEN TO BED 4
--- NOTE | 2017-02-15 21:36 | NUR ---
Respiratory Therapist at bedside for respiratory intervention.
--- NOTE | 2017-02-15 21:37 | NUR ---
Dr. Ring evaluating patient at bedside.
[2017-02-15] MEDS ORDERED: methylPREDNISolone SS 125 MG/2 ML VIAL IVP ONE (21:40)
[2017-02-15] MEDS ORDERED: ALBUTEROL SULFATE/IPRATROPIU 3 ML SOL IH ONE ×3 (21:40→22:25)
[2017-02-15] MEDS ORDERED: MAG SULF 2000 MG/WATER PREMIX 50 ML IV ONE (21:40)
[2017-02-15] MEDS ORDERED: NACL 0.9% 1,000 ML IV ONE (21:40)
--- NOTE | 2017-02-15 21:40 | NUR ---
51 Y/F PRESENTS TO ED W/C/O SOB/WHEEZING X 1 DAY. ALSO STATES COUGH, DENIES FEVER. MED HX ASTHMA. AAO X4, AMBULATORY WITH STEADY GAIT. RESPIRATIONS ROOM AIR, LABORED WITH SHALLOW, BL WHEEZES, PRODUCTIVE COUGH. O2 SAT 92%. SKIN WARM AND DRY. NO C/O PAIN AT THIS TIME. VSS, ER MD AT BEDSIDE EVELAUATING PT.
[2017-02-15 21:51] LABS: BASOPHILS # (AUTO) 0.3 K/uL (0.00-0.22); EOSINOPHILS # (AUTO) 0.5 K/uL (0-0.4); HEMATOCRIT 48.1 % (36-48); HEMOGLOBIN 15.3 g/dL (12.0-16.0); LYMPHOCYTES # (AUTO) 1.3 K/uL (2.5-16.5); MEAN CORPUSCULAR HEMOGLOBIN 29 pg (27-31); MEAN CORPUSCULAR HGB CONC 32 g/dL (33-37); MEAN CORPUSCULAR VOLUME 91 fL (80-94); MONOCYTES # (AUTO) 0.8 K/uL (0.8-1.0); NEUTROPHILS # (AUTO) 3.4 K/uL (1.8-7.7); PLATELET COUNT (AUTO) 241 K/uL (140-450); RED BLOOD CELL COUNT(AUTO) 5.26 MIL/uL (4.20-5.40); RED CELL DISTRIBUTION WIDTH 12.8 % (11.6-13.7); WHITE BLOOD COUNT (AUTO) 6.3 K/uL (4.8-10.8)
[2017-02-15 22:03] LABS: ANION GAP 8.3 (8-16); CARBON DIOXIDE 29.7 mmol/L (21-32); CREATININE 0.7 mg/dL (0.6-1.3)
[2017-02-15 22:10] LABS: ALBUMIN 4.1 g/dL (3.4-5.0); TOTAL BILIRUBIN 0.3 mg/dL (0.0-1.0)
--- NOTE | 2017-02-15 22:33 | NUR ---
Respiratory Therapist at bedside for respiratory intervention.
[2017-02-15] MEDS ORDERED: HYDROcodone/APAP 7.5/325 MG 1 TAB PO PRN (22:35)
[2017-02-15] MEDS ORDERED: ONDANSETRON 4 MG/2 ML VIAL IM/IVP PRN (22:35)
[2017-02-15] MEDS ORDERED: ACETAMINOPHEN 325 MG TAB PO PRN (22:35)
[2017-02-15] MEDS ORDERED: DOCUSATE SODIUM 100 MG GELCAP PO PRN (22:35)
[2017-02-15] MEDS ORDERED: ALBUTEROL HFA MDI 90 MCG/ACTUATION 8 GM INH PRN ×2 (23:05)
--- NOTE | 2017-02-15 23:05 | NUR ---
Patient will be admitted to care of DR. CASILLAS. Admited to TELEMETRY. Will go to [id number]. Belongings list completed. Report to JOHN PICHARDO.
[2017-02-15 23:15] VITALS: BP 134/78
--- NOTE | 2017-02-15 23:15 | NUR ---
ADMITTED PATIENT TO THE TELE UNIT, PATIENT AWAKE ALERT ORIENTED X4, NO S/S OF ACUTE DISTRESS NOTED, RESPIRATION EVEN AND UNLABORED WHEN PATIENT IS ON O2 NC 2L. NO SHORT OF BREATH NOTED AT THIS MOMENT. TELE MONITOR IS PLACED ON PATIENT, IV PATENT AND INTACT. PLAN OF CARE DISCUSSED, PATIENT VERBALIZED UNDERSTANDING, CALL LIGHT WITHIN REACH, HEAD OF THE BED ELEVATED, SAFETY MEASURE ENSURED, WILL CONTINUE TO MONITOR.
[2017-02-15] MEDS: NACL 0.9% 1,000 ML IV SCH (23:21)
[2017-02-16 00:25] LABS: CHOL/HDL RATIO 2.1 (1-4.5); FREE T4 (FREE THYROXINE) 1.1 ng/dL (0.76-1.46); MAGNESIUM 1.7 mg/dL (1.8-2.4); PHOSPHORUS 4.7 mg/dL (2.5-4.9); THYROID STIMULATING HORMONE 1.08 uIU/mL (0.34-3.74)
[2017-02-16 00:31] LABS: PROTHROMBIN TIME 12.4 secs (10.8-13.4)
--- NOTE | 2017-02-16 02:49 | NUR ---
PATIENT IS SLEEPING AT THIS TIME. NO S/S OF ACUTE DISTRESS NOTED ,RESPIRATION EVEN AND UNLABORED, CALL LIGHT WITHIN REACH, SAFETY MEASURE ENSURED, WILL CONTINUE TO MONITOR.
[2017-02-16 04:00] VITALS: BP 125/83
--- NOTE | 2017-02-16 04:39 | NUR ---
IV PUMP KEEPS BEEPING WHENEVER PATIENT BENDS HER ARM, PATIENT REQUESTED NEW IV, STARTED NEW IV 22G ON LT WRIST. PATIENT TOLERATED WELL. WILL CONTINUE TO MONITOR.
[2017-02-16 05:33] LABS: BASOPHILS # (AUTO) 0.1 K/uL (0.00-0.22); BASOPHILS % (AUTO) 1.5 % (0.0-2.0); HEMATOCRIT 46.7 % (36-48); HEMOGLOBIN 14.9 g/dL (12.0-16.0); LYMPHOCYTES # (AUTO) 0.3 K/uL (2.5-16.5); LYMPHOCYTES % (AUTO) 6.2 % (20.5-51.1); MEAN CORPUSCULAR HEMOGLOBIN 29 pg (27-31); MEAN CORPUSCULAR HGB CONC 32 g/dL (33-37); MEAN CORPUSCULAR VOLUME 92 fL (80-94); MONOCYTES # (AUTO) 0.1 K/uL (0.8-1.0); MONOCYTES % (AUTO) 1.1 % (1.7-9.3); NEUTROPHILS # (AUTO) 4.1 K/uL (1.8-7.7); NEUTROPHILS % (AUTO) 90.2 % (42.2-75.2); PLATELET COUNT (AUTO) 213 K/uL (140-450); RED BLOOD CELL COUNT(AUTO) 5.07 MIL/uL (4.20-5.40); RED CELL DISTRIBUTION WIDTH 13.2 % (11.6-13.7); WHITE BLOOD COUNT (AUTO) 4.6 K/uL (4.8-10.8)
[2017-02-16] MEDS ORDERED: ALBU1SPR IH (05:52)
[2017-02-16] MEDS ORDERED: IBUP-2213 PO (05:52)
[2017-02-16] MEDS ORDERED: TEMA30CA23 PO (05:52)
[2017-02-16] MEDS ORDERED: ALBUTEROL SULFATE IH PRN (05:55)
[2017-02-16] MEDS ORDERED: TEMAZEPAM 15 MG CAP PO PRN (05:55)
[2017-02-16] MEDS ORDERED: IPRATROPIUM IH PRN (05:55)
[2017-02-16] MEDS ORDERED: [UNRECOGNIZED DRUG - OTHER] IH PRN (05:55)
[2017-02-16] MEDS ORDERED: IBUPROFEN 600 MG TAB PO PRN (05:55)
--- NOTE | 2017-02-16 06:08 | NUR ---
PATIENT IS SLEEPING AT THIS TIME. NO S/S OF ACUTE DISTRESS NOTED, RESPIRATION EVEN AND UNLABORED, CALL LIGHT WITHIN REACH, SAFETY MEASURE ENSURED, WILL CONTINUE TO MONITOR.
[2017-02-16 06:43] LABS: ANION GAP 10.3 (8-16); CARBON DIOXIDE 27.5 mmol/L (21-32); CREATININE 0.7 mg/dL (0.6-1.3); POTASSIUM 3.8 mmol/L (3.5-5.1)
--- NOTE | 2017-02-16 07:15 | NUR ---
RECEIVED REPORT FROM DRAPERY AND UPHOLSTERY ESTIMATOR RN. PATIENT IS SLEEPING IN BED. AOX4. NASAL CANNULA ON 2L IN PLACE, LUNG SOUNDS CLEAR, BOWEL SOUNDS ACTIVE. NO SIGNS AND SYMPTOMS OF ACUTE RESPIRATORY DISTRESS NOTED AT THIS TIME. BED IN LOWEST POSITION, SIDERAILS UP X2, CALL LIGHT PLACED WITHIN REACH. WILL CONTINUE TO MONITOR.
--- NOTE | 2017-02-16 07:19 | NUR ---
ENDORSED PLAN OF CARE TO DAY RN, PATIENT IS IN STABLE CONDITION. NO S/S OF ACUTE DISTRESS.
[2017-02-16] MEDS: ALBUTEROL SULFATE/IPRATROPIU 3 ML SOL IH SCH ×3 (07:39→18:54)
[2017-02-16] MEDS: BUDESONIDE 0.25 MG/2 ML NEBU INH SCH ×2 (07:39→18:54)
[2017-02-16 08:00] VITALS: BP 126/76
[2017-02-16] MEDS ORDERED: FLUTICASONE PROPIONATE 110 MCG INH SCH (09:00)
[2017-02-16] MEDS ORDERED: NON-FORMULARY ITEM (Saccharomyces Boulardii* (Florastor*) 250 MG) PO SCH (09:00)
[2017-02-16] MEDS ORDERED: FLUTICASONE PROPIONATE IH SCH (09:00)
[2017-02-16] MEDS: LEVOFLOXACIN 750 MG/D5W PREMIX 150 ML IV SCH (09:01)
[2017-02-16] MEDS: LORATADINE 10 MG TAB PO SCH (09:01)
[2017-02-16] MEDS: LACTOBACILLUS RHAMNOSUS GG 1 EACH CAP PO SCH ×2 (09:01→21:29)
--- NOTE | 2017-02-16 09:54 | NUR ---
PATIENT HAS BEEN SCREENED AND CATEGORIZED LOW NUTRITION RISK. PATIENT WILL BE SEEN WITHIN 7 DAYS OF ADMISSION. 02/22/[address]
[2017-02-16] MEDS: NACL 0.9% 1,000 ML IV SCH ×2 (10:04→20:04)
--- NOTE | 2017-02-16 10:05 | NUR ---
FAMILY AT BEDSIDE, PATIENT HAS NO SIGNS AND SYMPTOMS OF ACUTE DISTRESS. WILL CONTINUE TO MONITOR.
--- NOTE | 2017-02-16 11:15 | NUR ---
PATIENT IS SLEEPING. WILL CONTINUE TO MONITOR.
[2017-02-16 12:00] VITALS: BP 128/89
--- NOTE | 2017-02-16 12:50 | NUR ---
PATIENT LAYING IN BED, EYES ARE CLOSED, AROUSABLE BY NAME. NO SIGNS AND SYMPTOMS OF ACUTE DISTRESS NOTED AT THIS TIME. RESPIRATORY EFFORT EVEN AND UNLABORED. WILL CONTINUE TO MONITOR.
--- NOTE | 2017-02-16 13:03 | NUR ---
CM NOTE INITIAL REVIEW FAXED TO [facility] / FAX# [phone], ATTN: FRANCIA #[phone]
--- NOTE | 2017-02-16 13:42 | NUR ---
GAVE PATIENT A SPECIMEN CUP TO COLLECT A URINE SAMPLE WHEN SHE CAN. PATIENT VERBALIZED UNDERSTANDING.
[2017-02-16] MEDS ORDERED: DEXTROSE 50% 50 ML SYR IVP PRN (14:00)
[2017-02-16] MEDS ORDERED: MAG SULF 2000 MG/WATER PREMIX 50 ML IV SCH (14:00)
[2017-02-16] MEDS ORDERED: INSULIN LISPRO SLIDING SCALE 100 UNITS/ML VIAL SUBQ PRN (14:00)
[2017-02-16] MEDS: guaiFENesin/CODEINE 100/10MG 5 ML UDC PO PRN (14:34)
[2017-02-16 16:00] VITALS: BP 140/81
[2017-02-16] MEDS: MONTELUKAST SODIUM 10 MG TAB PO SCH (16:51)
[2017-02-16] MEDS: BLOOD GLUCOSE MONITORING 1 DEV DEV FS SCH ×2 (16:54→21:00)
[2017-02-16 17:13] LABS: APPEARANCE,URINE CLEAR (CLEAR); BILIRUBIN,URINE NEGATIVE (NEGATIVE); BLOOD, URINE NEGATIVE (NEGATIVE); COLOR,URINE YELLOW (YELLOW); LEUKOCYTE ESTERASE ,URINE NEGATIVE (NEGATIVE); NITRITE, URINE NEGATIVE (NEGATIVE); PH,URINE 7.5 (5.0-9.0); UGLUCOSE NEGATIVE (NEGATIVE)
[2017-02-16 17:21] LABS: BARBITURATE, URINE NEG. ng/ml (NEG <=200); BENZODIAZEPINE, URINE NEG. ng/mL (NEG <=200); CANNABINOID, URINE NEG. ng/mL (NEG <=50); COCAINE, URINE NEG. ng/mL (NEG <=300); OPIATE, URINE NEG. ng/mL (NEG <=2000); PHENCYCLIDINE SCREEN,URINE NEG. ng/mL (NEG <=25)
--- NOTE | 2017-02-16 19:25 | NUR ---
ENDORSED PATIENT TO REFUELING RAMPMAN RN FOR CONTINUITY OF CARE. AT BEDSIDE. PATIENT IN STABLE CONDITION.
--- NOTE | 2017-02-16 19:30 | NUR ---
RECEIVED REPORT FROM DAY SHIFT RN AT PT BEDSIDE FOR CONTINUITY OF CARE. PATIENT IS AAOX4, ON 2L OF O2 VIA NC. NO SIGNS AND SYMPTOMS OF RESPIRATORY DISTRESS NOTED AT THIS TIME, LUNGS ARE CLEAR. HAS 22 GAUGE IV, ASYMPTOMATIC, TO RIGHT WRIST INFUSING NS@60ML/HR, AND AN 18 GAUGE IV TO THE RIGHT AC SL. SKIN INTACT. UPDATED BOARD, DISCUSSED PLAN OF CARE WITH PT, PT VERBALIZED UNDERSTANDING. PT IN STABLE CONDITION. BED IN LOW POSITION, CALL LIGHT WITHIN REACH. WILL CONTINUE TO MONITOR.
[2017-02-16 20:00] VITALS: BP 117/77
[2017-02-16] MEDS: methylPREDNISolone SS 125 MG/2 ML VIAL IVP SCH ×2 (21:00→22:27)
[2017-02-16] MEDS: CITALOPRAM 20 MG TAB PO SCH (21:28)
--- NOTE | 2017-02-16 21:30 | NUR ---
ADMINISTERED SCHEDULED MEDICATIONS, PT TOLERATED WELL. PT IN STABLE CONDITION, NO S/S OF DISTRESS NOTED. BED IN LOW POSITION, CALL LIGHT WITHIN REACH. WILL CONTINUE TO MONITOR.
[2017-02-16] MEDS: MORPHINE SULFATE 2 MG/ML SYR IVP PRN (21:34)
--- NOTE | 2017-02-16 22:28 | NUR ---
HELD ADMINISTRATION OF SOLUMEDROL FOR 2100 BECAUSE IT HAD NOT BEEN ADMINISTERED TODAY. ASKED CHARGE AND DR LANGFORD ABOUT IT, SAID IT HAD TO BE ADMINISTERED. ADMINISTERED DOSE NOW.
[2017-02-17] VITALS: BP 140/86
--- NOTE | 2017-02-17 | NUR ---
PT IN STABLE CONDITION, VITAL SIGNS WNL. NO S/S OF DISTRESS NOTED. BED IN LOW POSITION, CALL LIGHT WITHIN REACH. WILL CONTINUE TO MONITOR.
[2017-02-17] MEDS: MORPHINE SULFATE 2 MG/ML SYR IVP PRN ×2 (03:46→12:46)
[2017-02-17 04:00] VITALS: BP 123/77
[2017-02-17 05:25] LABS: BASOPHILS % (AUTO) 0.6 % (0.0-2.0); EOSINOPHILS % (AUTO) 0.7 % (0.0-4.0); HEMOGLOBIN 14.8 g/dL (12.0-16.0); LYMPHOCYTES # (AUTO) 0.3 K/uL (2.5-16.5); LYMPHOCYTES % (AUTO) 5.2 % (20.5-51.1); MEAN CORPUSCULAR HEMOGLOBIN 30 pg (27-31); MEAN CORPUSCULAR HGB CONC 33 g/dL (33-37); MEAN CORPUSCULAR VOLUME 92 fL (80-94); MONOCYTES # (AUTO) 0.1 K/uL (0.8-1.0); MONOCYTES % (AUTO) 1.6 % (1.7-9.3); NEUTROPHILS # (AUTO) 5.3 K/uL (1.8-7.7); NEUTROPHILS % (AUTO) 91.9 % (42.2-75.2); PLATELET COUNT (AUTO) 206 K/uL (140-450); RED BLOOD CELL COUNT(AUTO) 4.91 MIL/uL (4.20-5.40)
[2017-02-17 05:34] LABS: ANION GAP 8.7 (8-16); CARBON DIOXIDE 26.7 mmol/L (21-32); CREATININE 0.8 mg/dL (0.6-1.3); POTASSIUM 4.4 mmol/L (3.5-5.1)
[2017-02-17] MEDS: methylPREDNISolone SS 40 MG/ML VIAL IVP SCH ×3 (05:50→21:19)
[2017-02-17] MEDS: LEVOFLOXACIN 750 MG/D5W PREMIX 150 ML IV SCH (05:50)
[2017-02-17] MEDS: NACL 0.9% 1,000 ML IV SCH (06:04)
[2017-02-17 06:36] LABS: WHITE BLOOD COUNT (AUTO) 5.7 K/uL (4.8-10.8)
[2017-02-17] MEDS: BUDESONIDE 0.25 MG/2 ML NEBU INH SCH ×2 (07:04→18:54)
[2017-02-17] MEDS: ALBUTEROL SULFATE/IPRATROPIU 3 ML SOL IH SCH ×3 (07:04→18:54)
[2017-02-17 07:17] LABS: T4 (THYROXINE) 8.1 ug/dL (4.5-12.0)
--- NOTE | 2017-02-17 07:25 | NUR ---
RECEIVED REPORT FROM SCHOOL COOK RN. PATIENT IS AAOX4, HAS NO SIGNS AND SYMPTOMS OF DISTRESS NOTED AT THIS TIME. HAS BILATERAL WHEEZING ON EXPIRATORY UPON LUNG AUSCULTATION. BOWEL SOUNDS ARE ACTIVE. HAS NS INFUSING AT 60 ML/HR TO RIGHT WRIST 22G, CLEAN, DRY AND PATENT. HAS RIGHT AC 18G SALINE LOCK. CLEAN, DRY AND PATENT. DISCUSSED PLAN OF CARE WITH PATIENT, VERBALIZED UNDERSTANDING. BED IN LOWEST POSITION, SIDERAILS UP X2, CALL LIGHT PLACED WITHIN REACH. WILL CONTINUE TO MONITOR.
--- NOTE | 2017-02-17 07:31 | NUR ---
ENDORSED PT TO DAY SHIFT NURSE FOR CONTINUITY OF CARE. PT IN STABLE CONDITION.
[2017-02-17] MEDS: BLOOD GLUCOSE MONITORING 1 DEV DEV FS SCH ×2 (07:45→11:26)
[2017-02-17 08:00] VITALS: BP 138/82
[2017-02-17] MEDS ORDERED: KETOROLAC 10 MG TAB PO PRN (08:25)
--- NOTE | 2017-02-17 08:40 | NUR ---
PATIENT IS SLEEPING, NO SIGNS AND SYMPTOMS OF ACUTE RESPIRATORY DISTRESS NOTED. WILL CONTINUE TO MONITOR.
[2017-02-17] MEDS: LORATADINE 10 MG TAB PO SCH (09:22)
[2017-02-17] MEDS: LACTOBACILLUS RHAMNOSUS GG 1 EACH CAP PO SCH ×2 (09:22→21:18)
[2017-02-17] MEDS: ATORVASTATIN 20 MG TAB PO SCH (09:22)
--- NOTE | 2017-02-17 10:01 | NUR ---
PATIENT SLEEPING IN BED BUT AROUSABLE BY NAME. WILL CONTINUE TO MONITOR.
[2017-02-17 12:00] VITALS: BP 123/74
--- NOTE | 2017-02-17 12:30 | NUR ---
FAXED CONCURRENT REVIEW TO [facility] [phone] PHONE FRANCIA [phone]
[2017-02-17] MEDS ORDERED: BACITRACIN 50000 UNITS/1 VIAL ONE (12:38)
[2017-02-17] MEDS: guaiFENesin/CODEINE 100/10MG 5 ML UDC PO PRN (13:49)
--- NOTE | 2017-02-17 13:50 | NUR ---
GAVE PATIENT ROBITUSSIN, DUE TO COUGHING A LOT. WILL CONTINUE TO MONITOR.
--- NOTE | 2017-02-17 14:33 | NUR ---
MADE A LAP AROUND THE UNIT WITH PATIENT ON 02 MONITOR, WITHOUT OXYGEN PER DOCTORS ORDER. PATIENTS SATURATION WAS 90% TO 91%. TOLERATED WELL, NO SIGNS AND SYMPTOMS OF DISTRESS NOTED AT THIS TIME. CONNECTED PATIENT BACK TO HER IV, BED IN LOWEST POSITION, SIDERAILS UP X2, CALL LIGHT PLACED WITHIN REACH. WILL CONTINUE TO MONITOR.
[2017-02-17] MEDS: ALBUTEROL SULFATE/IPRATROPIU 3 ML SOL IH PRN (14:50)
[2017-02-17 16:00] VITALS: BP 117/63
--- NOTE | 2017-02-17 16:05 | NUR ---
PATIENT IS RESTING. NO SIGNS AND SYMPTOMS OF DISTRESS NOTED AT THIS TIME.
[2017-02-17] MEDS: MONTELUKAST SODIUM 10 MG TAB PO SCH (16:53)
--- NOTE | 2017-02-17 19:23 | NUR ---
ENDORSED PATIENT TO SUPERVISOR [employer]UFA[employer]URING RN FOR CONTINUITY OF CARE. PATIENT IS STABLE AT THIS TIME.
--- NOTE | 2017-02-17 19:25 | NUR ---
RECEIVED REPORT FROM DAY SHIFT RN AT PT BEDSIDE FOR CONTINUITY OF CARE. PATIENT IS AAOX4, ON 2L OF O2 VIA NC. NO SIGNS AND SYMPTOMS OF RESPIRATORY DISTRESS NOTED AT THIS TIME, LUNGS ARE CLEAR. HAS 22 GAUGE IV, ASYMPTOMATIC, TO RIGHT WRIST INFUSING NS@100ML/HR, AND AN 18 GAUGE IV TO THE RIGHT AC SL. SKIN INTACT. UPDATED BOARD, DISCUSSED PLAN OF CARE WITH PT, PT VERBALIZED UNDERSTANDING. PT IN STABLE CONDITION. BED IN LOW POSITION, CALL LIGHT WITHIN REACH. WILL CONTINUE TO MONITOR.
[2017-02-17 20:00] VITALS: BP 107/75
[2017-02-17] MEDS: CITALOPRAM 20 MG TAB PO SCH (21:19)
--- NOTE | 2017-02-17 21:20 | NUR ---
PT AWAKENED BY LIGHT SHOULDER TAPPING. ADMINISTERED SCHEDULED MEDICATIONS, PT TOLERATED WELL. PT ON 2L O2 VIA NASAL CANNULA, PT STATES SHE WILL GO BACK TO SLEEP AND WANTS LIGHTS OFF. PT IN STABLE CONDITION, NO SIGNS OF DISTRESS NOTED. BED IN LOW POSITION, CALL LIGHT WITHIN REACH. WILL CONTINUE TO MONITOR.
--- NOTE | 2017-02-17 23:38 | NUR ---
PT IS ON ROOM AIR NOW, SATURATING AT 93%. VITAL SIGNS ARE WITHIN NORMAL LIMITS. PT IN STABLE CONDITION. BED IN LOW POSITION, CALL LIGHT WITHIN REACH. WILL CONTINUE TO MONITOR.
[2017-02-18 00:22] VITALS: BP 109/73
[2017-02-18] MEDS: NACL 0.9% 1,000 ML IV SCH ×3 (02:50→21:19)
[2017-02-18 04:00] VITALS: BP 132/80
[2017-02-18] MEDS: LEVOFLOXACIN 750 MG/D5W PREMIX 150 ML IV SCH (05:58)
[2017-02-18 06:15] LABS: BASOPHILS # (AUTO) 0.1 K/uL (0.00-0.22); BASOPHILS % (AUTO) 0.9 % (0.0-2.0); EOSINOPHILS % (AUTO) 0.2 % (0.0-4.0); HEMATOCRIT 45.8 % (36-48); HEMOGLOBIN 14.8 g/dL (12.0-16.0); LYMPHOCYTES # (AUTO) 0.3 K/uL (2.5-16.5); LYMPHOCYTES % (AUTO) 4.6 % (20.5-51.1); MEAN CORPUSCULAR HEMOGLOBIN 30 pg (27-31); MEAN CORPUSCULAR HGB CONC 32 g/dL (33-37); MEAN CORPUSCULAR VOLUME 92 fL (80-94); MONOCYTES # (AUTO) 0.6 K/uL (0.8-1.0); MONOCYTES % (AUTO) 7.8 % (1.7-9.3); NEUTROPHILS # (AUTO) 6.4 K/uL (1.8-7.7); NEUTROPHILS % (AUTO) 86.5 % (42.2-75.2); PLATELET COUNT (AUTO) 225 K/uL (140-450); RED BLOOD CELL COUNT(AUTO) 4.97 MIL/uL (4.20-5.40); RED CELL DISTRIBUTION WIDTH 13.4 % (11.6-13.7); WHITE BLOOD COUNT (AUTO) 7.4 K/uL (4.8-10.8)
[2017-02-18 06:19] LABS: ANION GAP 11.2 (8-16); CARBON DIOXIDE 28.1 mmol/L (21-32); CREATININE 0.6 mg/dL (0.6-1.3); POTASSIUM 4.3 mmol/L (3.5-5.1)
[2017-02-18] MEDS: ALBUTEROL SULFATE/IPRATROPIU 3 ML SOL IH SCH ×3 (06:46→19:13)
[2017-02-18] MEDS: BUDESONIDE 0.25 MG/2 ML NEBU INH SCH ×2 (06:57→19:13)
--- NOTE | 2017-02-18 07:20 | NUR ---
ENDORSED PT TO DAY SHIFT NURSE FOR CONTINUITY OF CARE, PT IN STABLE CONDITION WITHOUT SIGNS OF DISTRESS.
--- NOTE | 2017-02-18 07:21 | NUR ---
RECEIVED REPORT FROM CAUL FAT PULLER NURSE. PATIENT IN STABLE CONDITION. PATIENT LYING IN BED, NO DISTRESS NOTED. COMPLAINTS OF DRY COUGH AND SORE THROAT FROM COUGHING. WILL MEDICATE PER ORDERS. DENIES ANY PAIN AND DYSPNEA AT THIS TIME. RESPIRATORY EVEN, UNLABORED, O2 SAT 91-92% ON ROOM AIR. WHEEZING ON ALL LUNG LOBES. IV INTACT, PATENT, AND INFUSING. SKIN IS INTACT THROUGHOUT BODY, HAS ABD SCAR. PLAN OF CARE REVIEWED WITH PATIENT. PATIENT VERBALIZED UNDERSTANDING. SAFETY MEASURES IN PLACE, CALL LIGHT WITHIN REACH, BED RAILS UPX2, BED WHEELS LOCKED. WILL CONTINUE TO MONITOR.
[2017-02-18 08:00] VITALS: BP 153/77
--- NOTE | 2017-02-18 08:15 | NUR ---
PATIENT LYING IN BED WITH AT BEDSIDE. NO DISTRESS NOTED. RESPIRATIONS EVEN, UNLABORED, ON ROOM AIR WITH SATURATIONS 91-93%. DENIES ANY PAIN AT THIS TIME. MEDICATIONS DUE GIVEN. COMPLAINTS OF INTERMITTENT DRY COUGH, COUGH SYRUP GIVEN PER ORDERS. AAOX4, WHEEZING ON ALL LUNG LOBES. IV PATENT AND INFUSING. SAFETY MEASURES IN PLACE, CALL LIGHT WITHIN REACH. WILL CONTINUE TO MONITOR.
[2017-02-18] MEDS: LACTOBACILLUS RHAMNOSUS GG 1 EACH CAP PO SCH ×2 (08:19→21:08)
[2017-02-18] MEDS: guaiFENesin/CODEINE 100/10MG 5 ML UDC PO PRN ×2 (08:19→23:27)
[2017-02-18] MEDS: LORATADINE 10 MG TAB PO SCH (08:19)
[2017-02-18] MEDS: ATORVASTATIN 20 MG TAB PO SCH (08:19)
[2017-02-18] MEDS ORDERED: methylPREDNISolone SS 40 MG/ML VIAL IVP SCH (08:50)
--- NOTE | 2017-02-18 10:30 | NUR ---
PATIENT LYING IN BED SLEEPING. NO DISTRESS NOTED. RESPIRATIONS EVEN, UNLABORED, ON ROOM AIR. SAFETY MEASURES IN PLACE, CALL LIGHT WITHIN REACH. WILL CONTINUE TO MONITOR.
--- NOTE | 2017-02-18 11:40 | NUR ---
DR. ROSENTHAL AT BEDSIDE. WILL CONTINUE TO MONITOR.
[2017-02-18] MEDS ORDERED: guaiFENesin 20 MG/ML UDC PO PRN (11:45)
[2017-02-18] MEDS ORDERED: MAGNESIUM CITRATE 300 ML BTL PO SCH (11:49)
[2017-02-18 12:00] VITALS: BP 137/87
--- NOTE | 2017-02-18 13:04 | NUR ---
SCANNER DIDNT WORK
--- NOTE | 2017-02-18 13:30 | NUR ---
PATIENT AMBULATING IN HALLWAYS. STEADY GAIT. NO DISTRESS NOTED. DENIES ANY PAIN. CONTINUES TO HAVE COUGHING. WILL CONTINUE TO MONITOR.
[2017-02-18] MEDS: methylPREDNISolone SS 40 MG/ML VIAL IVP SCH ×2 (15:00→21:05)
--- NOTE | 2017-02-18 15:00 | NUR ---
PATIENT LYING IN BED WATCHING TV. NO DISTRESS NOTED. RESPIRATIONS EVEN, UNLABORED, ON ROOM AIR. DENIES ANY PAIN OR DYSPNEA AT THIS TIME. MEDICATIONS DUE GIVEN. IV INTACT, PATENT AND INFUSING. PATIENT O2 SAT AROUND 88-90% ON ROOM AIR. PATIENT HAD A BOWEL MOVEMENT TODAY. SAFETY MEASURES IN PLACE, CALL LIGHT WITHIN REACH. WILL CONTINUE TO MONITOR.
[2017-02-18 16:00] VITALS: BP 136/89
--- NOTE | 2017-02-18 17:00 | NUR ---
SOLUMEDROL ORDER IS 40MG Q8HRS, LAST DOSE GIVEN AT 0926, 1500 DOSE NOT GIVEN, PHARMACY TO CHANGE TIME ON eMAR.
[2017-02-18] MEDS: MONTELUKAST SODIUM 10 MG TAB PO SCH (17:34)
--- NOTE | 2017-02-18 19:06 | NUR ---
PT SITTING UP AWAKE ALERT, RESP SLIGHTLY LABORED WITH RETRACTIONS, + AUDIBLE WHEEZING, WHISKEY REGAUGER ON THE FLOOR NOTIFIED OF PT CONDITION, PT TO RECEIVE NEB TREATMENT.
--- NOTE | 2017-02-18 19:23 | NUR ---
REPORT GIVEN TO [facility] CENTER ATTENDANT NURSE. PATIENT IN STABLE CONDITION.
--- NOTE | 2017-02-18 19:25 | NUR ---
RECEIVED PT FROM EDDI LOPEZ PT IS AAOX4 AMBULATORY ON 06 09 LTS VIA NC, WHEEZING RESP THERAY IS READY TO GIVE HER A BREATHING TX ON TELEMETRY ST RELATIVES AT BED SIDE INITIAL ASSESSMENT DONE
[2017-02-18 20:00] VITALS: BP 125/77
[2017-02-18] MEDS: METOPROLOL 25 MG TAB PO SCH (21:07)
[2017-02-18] MEDS: CITALOPRAM 20 MG TAB PO SCH (21:08)
--- NOTE | 2017-02-18 21:54 | NUR ---
PT RESTING ON BED NOT SOB NOTED GETTING SLEEP ON TELEMETRY ST
[2017-02-19] VITALS: BP 128/79
--- NOTE | 2017-02-19 01:00 | NUR ---
PT REMAIN STABLE SLEEPING WELL NOT SOB NOTED ON TELEMETRY SR
[2017-02-19 04:00] VITALS: BP 109/79
--- NOTE | 2017-02-19 04:00 | NUR ---
SPONGE BATHGIVEN LINEN CHANGED IV ON RT ARM INFUSING WELL ON TEL SR NOT DISTRESS NOTED
[2017-02-19] MEDS: methylPREDNISolone SS 40 MG/ML VIAL IVP SCH ×2 (05:36→12:02)
[2017-02-19] MEDS: ALBUTEROL SULFATE/IPRATROPIU 3 ML SOL IH SCH (05:40)
[2017-02-19 06:16] LABS: BASOPHILS # (AUTO) 0.1 K/uL (0.00-0.22); BASOPHILS % (AUTO) 1.2 % (0.0-2.0); EOSINOPHILS % (AUTO) 0.2 % (0.0-4.0); HEMATOCRIT 49.1 % (36-48); HEMOGLOBIN 15.9 g/dL (12.0-16.0); LYMPHOCYTES # (AUTO) 0.6 K/uL (2.5-16.5); LYMPHOCYTES % (AUTO) 10.8 % (20.5-51.1); MEAN CORPUSCULAR HEMOGLOBIN 30 pg (27-31); MEAN CORPUSCULAR HGB CONC 33 g/dL (33-37); MEAN CORPUSCULAR VOLUME 92 fL (80-94); MONOCYTES # (AUTO) 0.5 K/uL (0.8-1.0); MONOCYTES % (AUTO) 8.2 % (1.7-9.3); NEUTROPHILS # (AUTO) 4.6 K/uL (1.8-7.7); NEUTROPHILS % (AUTO) 79.6 % (42.2-75.2); PLATELET COUNT (AUTO) 211 K/uL (140-450); RED BLOOD CELL COUNT(AUTO) 5.33 MIL/uL (4.20-5.40); RED CELL DISTRIBUTION WIDTH 13.4 % (11.6-13.7); WHITE BLOOD COUNT (AUTO) 5.9 K/uL (4.8-10.8)
[2017-02-19] MEDS: ALBUTEROL SULFATE/IPRATROPIU 3 ML SOL IH PRN (06:50)
[2017-02-19] MEDS: BUDESONIDE 0.25 MG/2 ML NEBU INH SCH (07:01)
[2017-02-19] MEDS: LEVOFLOXACIN 750 MG/D5W PREMIX 150 ML IV SCH (07:16)
--- NOTE | 2017-02-19 07:31 | NUR ---
PT REMAIN STABLE NOT SOB NOTED AFTER BREATHING TX GIVEN PT IS ENDORDSED TO UGO RN FOR CONTONUITY OF CARE
--- NOTE | 2017-02-19 07:32 | NUR ---
RECEIVED REPORT FROM [employer] PIPES ASSEMBLER NURSE. PATIENT SITTING IN BED WATCHING TV. PATIENT IN STABLE CONDITION, NO DISTRESS NOTED. PATIENT JUST COMPLETED A BREATHING TREATMENT FROM RT AND REPORTS FEELING MUCH BETTER. RESPIRATIONS EVEN, UNLABORED, 02 SAT 89% ON ROOM AIR. LUNGS WHEEZING ON ALL LOBES, HAS INTERMITTENT DRY COUGH. DENIES ANY PAIN AT THIS TIME. AAOX4, CALM, COOPERATIVE. SKIN INTACT, WARM TO TOUCH, COLOR APPROPRIATE TO ETHNICITY. IV INTACT, PATENT, AND INFUSING. PLAN OF CARE REVIEWED WITH PATIENT. PATIENT VERBALIZED UNDERSTANDING. SAFETY MEASURES IN PLACE, CALL LIGHT WITHIN REACH, BED RAILS UPX2. WILL CONTINUE TO MONITOR.
[2017-02-19 08:00] VITALS: BP 134/84
--- NOTE | 2017-02-19 08:20 | NUR ---
PATIENT SITTING IN BED WATCHING TV. NO DISTRESS NOTED. RESPIRATIONS EVEN, UNLABORED, ON ROOM AIR. DENIES ANY PAIN OR DISCOMFORTS AT THIS TIME. IV PATENT, INTACT AND INFUSING. MEDICATIONS DUE GIVEN. CONTINUES TO HAVE INTERMITTENT COUGH. SAFETY MEASURES IN PLACE, CALL LIGHT WITHIN REACH. WILL CONTINUE TO MONITOR
[2017-02-19] MEDS: LORATADINE 10 MG TAB PO SCH (08:24)
[2017-02-19] MEDS: ATORVASTATIN 20 MG TAB PO SCH (08:24)
[2017-02-19] MEDS: LACTOBACILLUS RHAMNOSUS GG 1 EACH CAP PO SCH (08:25)
[2017-02-19] MEDS: METOPROLOL 25 MG TAB PO SCH (08:25)
[2017-02-19] MEDS ORDERED: FLOR250 PO (09:03)
[2017-02-19] MEDS ORDERED: LEVO750T2 PO (09:03)
[2017-02-19] MEDS ORDERED: PRED20TA5 PO (09:03)
[2017-02-19] MEDS ORDERED: NEBU1KIT MC (09:11)
[2017-02-19] MEDS ORDERED: IPRA3AMP IH (09:11)
[2017-02-19] MEDS ORDERED: ATOR20TA40 PO (09:40)
[2017-02-19] MEDS ORDERED: ASPI81CT89 PO (09:43)
[2017-02-19] MEDS ORDERED: PNEUMOCOCCAL VACCINE 23 MCG/0.5 ML VIAL IMVAC SCH (10:40)
[2017-02-19] MEDS ORDERED: INFLUENZA VIRUS VACCINE QUAD 0.5 ML SYR IMVAC SCH (10:40)
--- NOTE | 2017-02-19 10:50 | NUR ---
PATIENT SITTING IN BED COMFORTABLY. NO DISTRESS NOTED. RESPIRATIONS EVEN, UNLABORED, ON ROOM AIR. PATIENT BEING DISCHARGED HOME. DISCHARGE INSTRUCTIONS GIVEN TO PATIENT, PCP FOLLOW-UP INFORMATION GIVEN. ANSWERED ALL PATIENT'S QUESTIONS. PATIENT VERBALIZED COMPLETE UNDERSTANDING. PATIENT'S HOME MEDICATIONS PICKED UP FROM PHARMACY AND HANDED TO PATIENT. ALL BELONGINGS WITH PATIENT. PATIENT IS AMBULATORY WITH STEADY GAIT. AWAITING SON TO ARRIVE TO DRIVE HER HOME VIA PRIVATE VEHICLE. WILL CONTINUE TO MONITOR.
[2017-02-19 12:00] VITALS: BP 118/78
--- NOTE | 2017-02-19 12:15 | NUR ---
PATIENT SITTING IN BED COMFORTABLY. NO DISTRESS NOTED. RESPIRATIONS EVEN, UNLABORED, ON ROOM AIR WITH 02 SAT 93%. SON AT BEDSIDE TO DRIVE PATIENT HOME. MEDICATIONS DUE GIVEN. IV LINES REMOVED WITH MINIMAL BLOOD, AND LUMENS COMPLETELY INTACT. PATIENT TOLERATED PROCEDURE WELL. SKIN IS INTACT. PATIENT ABLE TO AMBULATE WITH STEADY GAIT. REFUSES WHEELCHAIR UPON DISCHARGE. ALL BELONGINGS WITH PATIENT. ESCORTED PATIENT DOWN WITH SON TO THE LOBBY VIA AMBULATION. SON TO TAKE PATIENT HOME VIA PRIVATE VEHICLE. PATIENT IN STABLE CONDITION UPON DISCHARGE TO HOME.
== END 2017-02-19 12:10 | disposition home or self-care (01) | DRG 140 ==
LOC: MED 21:23 → MTU 22:38
PROVIDERS: ADMIT Family Medicine; ATTEND Family Medicine
DX: J44.1 Chronic obstructive pulmonary disease with (acute) exacerbation (principal); N17.0 Acute kidney failure with tubular necrosis; J96.01 Acute respiratory failure with hypoxia; R65.10 Systemic inflammatory response syndrome (SIRS) of non-infectious origin without acute organ dysfunction; I42.9 Cardiomyopathy, unspecified; J84.10 Pulmonary fibrosis, unspecified; J45.901 Unspecified asthma with (acute) exacerbation; E83.42 Hypomagnesemia; E83.52 Hypercalcemia; F32.9 Major depressive disorder, single episode, unspecified; E78.5 Hyperlipidemia, unspecified; E66.9 Obesity, unspecified; I73.9 Peripheral vascular disease, unspecified; F15.10 Other stimulant abuse, uncomplicated; Z83.3 Family history of diabetes mellitus; Z80.9 Family history of malignant neoplasm, unspecified; Z68.27 Body mass index [BMI] 27.0-27.9, adult
CPT/HCPCS: 36415; 71010; 80048; 80053; 80305; 81003; 82150; 82948; 83036; 83690; 83735; 83880; 84100; 84436; 84439; 84443; 84479; 85025; 85610; 85730; 87081; 90658; 93925; 93970; 94640; 96365; 96375; 99285; J1644; J1815; J1956; J2270; J2920; J2930; J3475; J3490; J7030; J7620; J7626; Q0092

== ENCOUNTER 2017-08-31 17:56 | Emergency (ER) | payer OTHER ==
[~2017-08-31] VITALS: Ht 162.6 cm; Wt 66.2 kg
[~2017-08-31 17:56] MED LIST changes: +ALBU1SPR IH; +ASPI81CT89 PO; +ATOR20TA40 PO; -FLO110 INH; +IPRA3AMP IH; -METH4TAB1 PO; +NEBU1KIT MC; +PRED20TA5 PO; +TEMA30CA23 PO
[2017-08-31 18:10] VITALS: BP 138/77
[2017-08-31] MEDS ORDERED: ALBUTEROL 0.083% 2.5 MG/3 ML NEBU INH ONE ×2 (18:10→19:05)
[2017-08-31] MEDS ORDERED: methylPREDNISolone SS 125 MG/2 ML VIAL IVP ONE (18:10)
[2017-08-31] MEDS ORDERED: IPRATROPIUM 0.02% 0.5 MG/2.5 ML NEBU INH ONE (18:10)
--- NOTE | 2017-08-31 18:13 | NUR ---
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 PT ABLE TO SPEAK IN SHORT PHRASES. AUDIBLE WHEEZES. PULSE OX= 97% ON RA. DIAPHORETIC. RT BY BEDSIDE. HX--ASTHMA. DENIES N/V. SKIN IS PINK/WARM/DRY; AAOX4 WITH EVEN AND STEADY GAIT; LUNGS WHEEZING BL. PATIENT STATES PAIN OF 0/10 AT THIS TIME. PATIENT POSITIONED FOR COMFORT; HOB ELEVATED; BEDRAILS UP X2; BED DOWN. ER MADE AWARE OF PT STATUS. Addendum: 08/31/17 at 1856 by [email or web address] PULSE OX 96%
--- NOTE | 2017-08-31 18:53 | NUR ---
OFF OXYGEN PER DR PAULINO ORDERED.
--- NOTE | 2017-08-31 19:08 | NUR ---
Patient being reevaluated by DR PAULINO at bedside.
--- NOTE | 2017-08-31 19:09 | NUR ---
Pt report given to bertram finch . Transfer of care at this time.
--- NOTE | 2017-08-31 19:40 | NUR ---
Respiratory Therapist at bedside for respiratory intervention.
[2017-08-31 20:15] VITALS: BP 127/86
== END 2017-08-31 20:15 | disposition home or self-care (01) ==
LOC: MED 17:56
DX: J45.909 Unspecified asthma, uncomplicated (principal); Z79.82 Long term (current) use of aspirin
CPT/HCPCS: 96374; 99284; J2930; J7613; J7644; 94640

== ENCOUNTER 2018-03-26 15:58 | Emergency (ER) | payer OTHER ==
[~2018-03-26] VITALS: Ht 167.6 cm; Wt 76.8 kg
[~2018-03-26 15:58] MED LIST changes: +ALBU3SOL83 IH; -IPRA3AMP IH
--- NOTE | 2018-03-26 16:13 | NUR ---
PT AMBULATES TO [facility]
[2018-03-26 16:15] VITALS: BP 139/95
--- NOTE | 2018-03-26 16:15 | NUR ---
PT IS A 52 Y/O FEMALE WHO PRESENTS TO THE ED C/O SOB. PT STATES THAT IT STARTED LAST NIGHT. PT REPORTS 6/10 ACHING L WRIST PAIN NOTED BUMP. NO TRAUMA OR INJURY. AUDIBLE WHEEZING NOTED. PT IN NO SIGNS OF CP, N/V/D. PT AWAKE AND ALERT, RR EVEN/UNLABORED. PT AWAKE AND ALERT, RR EVEN/UNLABORED. PT REPOSITIONED FOR COMFORT, BED IN LOWEST POSITION. ER PROVIDER NOTIFIED. WILL CONTINUE TO MONITOR. HX; ASTHMA RX; ALBUTEROL, COMBIVENT, SINGULAIR --
[2018-03-26] MEDS ORDERED: IPRATROPIUM 0.02% 0.5 MG/2.5 ML NEBU INH ONE ×3 (16:25→19:40)
[2018-03-26] MEDS ORDERED: ALBUTEROL 0.083% 2.5 MG/3 ML NEBU INH ONE ×4 (16:25→19:40)
[2018-03-26] MEDS ORDERED: DEXAMETHASONE 10 MG/ML VIAL IM ONE (16:25)
--- NOTE | 2018-03-26 16:25 | NUR ---
ADMITTING DX: SOB HX: ASTHMA LOC AWAKE AND ALERT RESPONSIVE TO MARBLE CLEANER VERBAL COMMANDS SITTING IN CHAIR EDUCATION PROVIDED TO PATIENT WITH ACKNOWLEDGEMENT ON [facility] THERAPY RESPIRATORY DRUGS AND PEAK FLOW METTER [facility] THERAPY GIVEN ORDERED ENCOURAGED PATIENT FOR INTERMITTENT DEEP BREATHING DURING THERAPY PEAK FLOW: before 85 m/l after 220 m/l TOLERATED PROCEDURE WELL WITHOUT INCIDENT
--- NOTE | 2018-03-26 17:13 | NUR ---
PT. TO ROOM #11. RR EVEN AND UNLABORED. HOB ELEVATED. VSS. WILL CONTINUE TO MONITOR.
--- NOTE | 2018-03-26 18:10 | NUR ---
PT. RESTING COMFORTABLY IN BED, RR EVEN AND UNLABORED. VSS. HOB ELEVATED. AT BEDSIDE AT THIS TIME.
--- NOTE | 2018-03-26 19:15 | NUR ---
Pt report given to JOHN COSTELLO . Transfer of care at this time.
[2018-03-26] MEDS ORDERED: KETOROLAC 60 MG/2 ML VIAL IM ONE (19:40)
[2018-03-26 20:50] VITALS: BP 130/80
--- NOTE | 2018-03-26 20:50 | NUR ---
Patient discharged with v/s stable. Written and verbal after care instructions given and explained. Patient alert, oriented and verbalized understanding of instructions. Ambulatory with steady gait. All questions addressed prior to discharge. ID band removed. Patient advised to follow up with PMD. Rx of Motrin and Prednisone given. Patient educated on indication of medication including possible reaction and side effects. Opportunity to ask questions provided and answered.
== END 2018-03-26 20:50 | disposition home or self-care (01) ==
LOC: MED 15:58
DX: J45.901 Unspecified asthma with (acute) exacerbation (principal); M25.532 Pain in left wrist; Z79.899 Other long term (current) drug therapy
CPT/HCPCS: 29125; 73110; 94640; 96372; 99285; J1100; J1885; J7613; J7644; Q0092; 99284

== ENCOUNTER 2018-04-02 12:19 | Emergency (ER) | payer OTHER ==
[~2018-04-02] VITALS: Ht 175.3 cm; Wt 77.3 kg
[2018-04-02] MEDS ORDERED: ALBUTEROL SULFATE/IPRATROPIU 3 ML SOL IH ONE ×2 (12:20→13:15)
[2018-04-02] MEDS ORDERED: predniSONE 20 MG TAB PO ONE (12:20)
[2018-04-02] MEDS ORDERED: ALBUTEROL 0.083% 2.5 MG/3 ML NEBU INH ONE ×2 (12:20→13:15)
--- NOTE | 2018-04-02 12:20 | NUR ---
PT AMBULATED TO ER BED 08
[2018-04-02 12:22] VITALS: BP 131/75
--- NOTE | 2018-04-02 12:29 | NUR ---
PATIENT PRESENTS TO ED WITH c/o asthma exacerbation x last night---hhn at home not helping 3-4 word speech, with nare flaring and mild supraclavicular accessory muscle use noted denies burrell or cp at this time .. DENIES N/V/D; SKIN IS PINK/WARM/DRY; AAOX4 WITH EVEN AND STEADY GAIT; HR EVEN AND REGULAR; TIME; PATIENT STATES PAIN OF 0/10 AT THIS TIME; VSS; PATIENT POSITIONED FOR COMFORT; HOB ELEVATED; BEDRAILS UP X2; BED DOWN. ER MD MADE AWARE OF PT STATUS.
--- NOTE | 2018-04-02 13:24 | NUR ---
second breathing treatment being implemented at this time---pt admits breathing easier
--- NOTE | 2018-04-02 13:25 | NUR ---
Patient discharged with v/s stable. Written and verbal after care instructions given and explained. Patient alert, oriented and verbalized understanding of instructions. Ambulatory with steady gait. All questions addressed prior to discharge. ID band removed. Patient advised to follow up with PMD. Rx of albuterol/ prednisone given. Patient educated on indication of medication including possible reaction and side effects. Opportunity to ask questions provided and answered.
[2018-04-02 13:44] VITALS: BP 121/76
== END 2018-04-02 13:25 | disposition home or self-care (01) ==
LOC: MED 12:19
DX: J45.901 Unspecified asthma with (acute) exacerbation (principal); Z90.710 Acquired absence of both cervix and uterus; Z79.899 Other long term (current) drug therapy
CPT/HCPCS: 94640; 99284; J7512; J7613; J7620

== ENCOUNTER 2019-02-04 17:40 | Emergency (ER) | payer OTHER ==
[~2019-02-04] VITALS: Ht 172.7 cm; Wt 77.1 kg
[~2019-02-04 17:40] MED LIST changes: +ASPI-1718 PO; -ASPI81CT89 PO
[2019-02-04 17:49] VITALS: BP 156/78
[2019-02-04] MEDS ORDERED: cefTRIAXone 1,000 MG in LIDOCAINE MPF 1% 2.1 ML IM ONE (19:15)
[2019-02-04] MEDS ORDERED: KETOROLAC 30 MG/ML VIAL IM ONE (19:20)
[2019-02-04 19:40] VITALS: BP 156/78
== END 2019-02-04 19:40 | disposition home or self-care (01) ==
LOC: MED 17:40
DX: N39.0 Urinary tract infection, site not specified (principal); J45.909 Unspecified asthma, uncomplicated; Z90.49 Acquired absence of other specified parts of digestive tract; Z90.710 Acquired absence of both cervix and uterus; Z98.890 Other specified postprocedural states; Z79.82 Long term (current) use of aspirin; Z79.899 Other long term (current) drug therapy
CPT/HCPCS: 81002; 81025; 96372; 99283; J0696; J1885; J2001

== ENCOUNTER 2019-12-23 12:27 | Emergency (ER) | payer OTHER, SELFPAY ==
[~2019-12-23] VITALS: Ht 175.3 cm; Wt 81.6 kg
[~2019-12-23 12:27] MED LIST changes: -ASPI-1718 PO; +ASPI-1822 PO
[2019-12-23 12:38] VITALS: BP 134/92
--- NOTE | 2019-12-23 12:59 | NUR ---
C/O N/V/D, LOWER SUPRAPUBIC PAIN 11/14 WITH TENDERNESS X 4 DAYS. BLOODY DIARRHEA X 3 EPISODES YESTERDAY. DENIES DIARRHEA TODAY. PT REPORTS HER GASTRITIS HAS BEEN WORSENING, CAUSING HER TO HAVE A BURNING SENSATION AND VOMIT MORE FREQUENTLY. STATES INTERMITTENT SOB DUE TO ASTHMA HISTORY. DENIES CP. MED HX: ASTHMA, R GROIN HERNIA SURGERY, C SECTION, HYSTERECTOMY, GASTRITIS Addendum: 12/23/19 at 1305 by [email or web address] ABDOMEN LARGE AND ROUND
[2019-12-23 14:24] LABS: BASOPHILS % (AUTO) 0.5 % (0.0-2.0); EOSINOPHILS # (AUTO) 0.2 K/uL (0-0.4); EOSINOPHILS % (AUTO) 3.5 % (0.0-4.0); HEMATOCRIT 45.7 % (36-48); LYMPHOCYTES # (AUTO) 1.8 K/uL (2.5-16.5); LYMPHOCYTES % (AUTO) 35.4 % (20.5-51.1); MEAN CORPUSCULAR HEMOGLOBIN 30 pg (27-31); MEAN CORPUSCULAR HGB CONC 33 g/dL (33-37); MEAN CORPUSCULAR VOLUME 90.9 fL (80-94); MONOCYTES # (AUTO) 0.6 K/uL (0.8-1.0); NEUTROPHILS # (AUTO) 2.5 K/uL (1.8-7.7); NEUTROPHILS % (AUTO) 49.6 % (42.2-75.2); PLATELET COUNT (AUTO) 271 K/uL (140-450); RED BLOOD CELL COUNT(AUTO) 5.03 MIL/uL (4.20-5.40); RED CELL DISTRIBUTION WIDTH 13.5 % (11.6-13.7); WHITE BLOOD COUNT (AUTO) 5.1 K/uL (4.8-10.8)
[2019-12-23 14:56] LABS: ALBUMIN 3.7 g/dL (3.4-5.0); ANION GAP 12.9 (8-16); CARBON DIOXIDE 27.1 mmol/L (21-32); CREATININE 0.7 mg/dL (0.6-1.3); TOTAL BILIRUBIN 0.6 mg/dL (0.0-1.0)
[2019-12-23 16:17] VITALS: BP 129/88
== END 2019-12-23 16:19 | disposition home or self-care (01) ==
LOC: MED 12:27
DX: R10.9 Unspecified abdominal pain (principal); R11.2 Nausea with vomiting, unspecified; R19.7 Diarrhea, unspecified; J45.909 Unspecified asthma, uncomplicated; Z79.899 Other long term (current) drug therapy; Z79.82 Long term (current) use of aspirin
CPT/HCPCS: 36415; 80053; 81002; 85025; 99284

== ENCOUNTER 2020-01-20 10:46 | Emergency (ER) | payer OTHER, SELFPAY ==
[~2020-01-20] VITALS: Ht 167.6 cm; Wt 83.9 kg
[2020-01-20 10:52] VITALS: BP 144/89
--- NOTE | 2020-01-20 10:56 | NUR ---
PT AMBULATED TO ER BED 07
--- NOTE | 2020-01-20 11:00 | NUR ---
PT 54 Y/O FEMALE BIB SELF FOR C/O VOMITING SINCE 10PM LAST NIGHT. PT HAS 9/10 EPIGASTIC PAIN "BIRNING" AND RADIATES TO RUQ. PT VOMIT APPEARS COFFE GROUND. PT ABD IS SOFT, ROUND, AND TENDER TO TOUCH. DENIES DIARRHEA. PT STATES SHE HAS HAD 6 EPISODES OF VOMITING SINCE YESTERDAY. BED LOCKED AND IN LOWEST POSTION. MEDHX: ASTHMA ALLERGIES: NKA
--- NOTE | 2020-01-20 11:34 | NUR ---
ERMD AT BEDSIDE.
[2020-01-20] MEDS ORDERED: ONDANSETRON 4 MG/2 ML VIAL IVP ONE (11:40)
[2020-01-20] MEDS ORDERED: NACL 0.9% 1,000 ML IV ONE (11:40)
[2020-01-20] MEDS ORDERED: FAMOTIDINE 20 MG/2 ML VIAL IVP ONE (11:40)
--- NOTE | 2020-01-20 11:52 | NUR ---
iv placed in r ac 20g. labs drawn and given to bed laborer.
--- NOTE | 2020-01-20 11:54 | NUR ---
ekg being performed at bedside.
[2020-01-20 12:01] LABS: BASOPHILS % (AUTO) 0.3 % (0.0-2.0); EOSINOPHILS # (AUTO) 0.1 K/uL (0-0.4); HEMATOCRIT 47.3 % (36-48); HEMOGLOBIN 15.7 g/dL (12.0-16.0); LYMPHOCYTES # (AUTO) 1.6 K/uL (2.5-16.5); LYMPHOCYTES % (AUTO) 29.9 % (20.5-51.1); MEAN CORPUSCULAR HEMOGLOBIN 31 pg (27-31); MEAN CORPUSCULAR HGB CONC 33 g/dL (33-37); MEAN CORPUSCULAR VOLUME 91.5 fL (80-94); MONOCYTES # (AUTO) 0.5 K/uL (0.8-1.0); MONOCYTES % (AUTO) 9.5 % (1.7-9.3); NEUTROPHILS # (AUTO) 3.2 K/uL (1.8-7.7); NEUTROPHILS % (AUTO) 59.3 % (42.2-75.2); PLATELET COUNT (AUTO) 246 K/uL (140-450); RED BLOOD CELL COUNT(AUTO) 5.17 MIL/uL (4.20-5.40); RED CELL DISTRIBUTION WIDTH 13.8 % (11.6-13.7); WHITE BLOOD COUNT (AUTO) 5.4 K/uL (4.8-10.8)
[2020-01-20 12:38] LABS: ANION GAP 10.6 (8-16); CARBON DIOXIDE 30.2 mmol/L (21-32); CREATININE 0.8 mg/dL (0.6-1.3); POTASSIUM 3.8 mmol/L (3.5-5.1); TOTAL BILIRUBIN 0.6 mg/dL (0.0-1.0)
[2020-01-20 12:43] LABS: PROTHROMBIN TIME 11.5 secs (10.8-13.4)
--- NOTE | 2020-01-20 13:21 | NUR ---
PT STATES EPIGASTRIC BURNING AND NAUSEA HAS REDUCED.
--- NOTE | 2020-01-20 13:22 | NUR ---
ERMD AT BEDSIDE.
--- NOTE | 2020-01-20 13:28 | NUR ---
IV removed, catheter intact and site benign. Applied folded 4x4 gauze and tape to stop bleeding.
[2020-01-20 13:30] VITALS: BP 138/72
--- NOTE | 2020-01-20 13:30 | NUR ---
Patient discharged with v/s stable. Written and verbal after care instructions given and explained. Patient alert, oriented and verbalized understanding of instructions. Ambulatory with steady gait. All questions addressed prior to discharge. ID band removed. Patient advised to follow up with PMD. Rx of ZOFRAN, PEPCID given. Patient educated on indication of medication including possible reaction and side effects. Opportunity to ask questions provided and answered.
== END 2020-01-20 13:30 | disposition home or self-care (01) ==
LOC: MED 10:46
DX: K29.71 Gastritis, unspecified, with bleeding (principal); K92.0 Hematemesis; R03.0 Elevated blood-pressure reading, without diagnosis of hypertension; J45.909 Unspecified asthma, uncomplicated; F32.9 Major depressive disorder, single episode, unspecified; Z98.890 Other specified postprocedural states; Z79.899 Other long term (current) drug therapy; Z79.82 Long term (current) use of aspirin
CPT/HCPCS: 36415; 76705; 80053; 83690; 85025; 85610; 85730; 86886; 86900; 86901; 93005; 96361; 96374; 96375; 99285; J2405; J3490; Q0092

== ENCOUNTER 2020-08-21 17:23 | Emergency (ER) | payer OTHER, SELFPAY ==
[~2020-08-21] VITALS: Ht 172.7 cm; Wt 81.6 kg
[2020-08-21 17:33] VITALS: BP 147/96
[2020-08-21] MEDS ORDERED: KETOROLAC 30 MG/ML VIAL IM ONE (18:10)
[2020-08-21] MEDS ORDERED: IBUP-2213 PO (18:14)
--- NOTE | 2020-08-21 18:20 | NUR ---
C/O 02/14 RIGHT SHOULDER PAIN X 1.5 MONTH. DENIES TRAUMA. PMH: ASTHMA
[2020-08-21 18:37] VITALS: BP 147/96
== END 2020-08-21 18:36 | disposition home or self-care (01) ==
LOC: MED 17:23
DX: M75.31 Calcific tendinitis of right shoulder (principal); J45.909 Unspecified asthma, uncomplicated; Z79.899 Other long term (current) drug therapy
CPT/HCPCS: 73030; 96372; 99283; J1885